=== PATIENT | female | born 1975 | race Caucasian/White ===

== ENCOUNTER 2021-01-04 13:35 | Emergency (ER) | payer OTHER, SELFPAY ==
[2021-01-04 13:40] VITALS: BP 169/88; PULSE 77; RESP 18; TEMP 37.1; O2SAT 100; BMI 22.6
[2021-01-04 17:23] LABS: MANUAL DIFF FLAG NO
[2021-01-04 17:27] LABS: Basophils Percent Auto 0.6 % (0-2); Eosinophils Absolute Auto 0.4 X10*3/uL (0.0-0.4); Eosinophils Percent Auto 5.9 % (0-4); Hematocrit 38.7 % (37-47); Hemoglobin 12.6 g/dl (12.0-16.0); Imm Gran Abs Auto 0.01 X10*3/uL (0.00-0.03); Imm Gran Pct Auto 0.1 % (0.0-0.4); Lymphocytes Percent Auto 27.2 % (20-40); Mean Corpuscular HGB Conc 32.6 g/dl (31.0-35.0); Mean Corpuscular Hemoglobin 30.2 pg (27.0-33.0); Mean Corpuscular Volume 92.8 fL (80-98); Mean Platelet Volume 10.1 fL (9.4-12.3); Monocytes Absolute Auto 0.6 X10*3/uL (0.1-1.2); Monocytes Percent Auto 8.1 % (2-11); Neutrophils Absolute Auto 4.2 X10*3/uL (2.0-8.3); Neutrophils Percent Auto 58.1 % (45-73); Platelet Count 273 X10*3/uL (160-400); Red Blood Count 4.17 X10*6/uL (4.20-5.50); Red Cell Distribution Width 11.9 % (11.0-16.0); White Blood Count 7.2 X10*3/uL (4.8-10.8)
[2021-01-04 17:31] LABS: Prothrombin Time 11.9 SEC (10.8-13.0)
[2021-01-04 17:48] LABS: Alanine Aminotransferase 7 U/L (0-31); Albumin Level 4.2 g/dL (3.5-5.0); Alkaline Phosphatase 65 U/L (39-117); Anion Gap 11 (12-20); Aspartate Amino Transferase 11 U/L (5-31); Bilirubin Total 0.6 mg/dL (0.0-1.0); Blood Urea Nitrogen 10 mg/dL (9-16); Carbon Dioxide 25 mmol/L (22-29); Chloride 106 mmol/L (96-108); Creatinine Clr Calc Pharmacy 90.2; Estimated Glomerular Filt Rate > 60; Glucose Random 97 mg/dL (60-115); Potassium 4.1 mmol/L (3.3-5.1); Sodium 138 mmol/L (135-145); Total Protein 6.7 g/dL (6.5-8.0)
[2021-01-04 18:01] VITALS: BP 174/81; PULSE 84; RESP 20; O2SAT 98
--- NOTE | 2021-01-04 19:40 | ED_ITS ---
HPI - Weakness General Chief complaint: Weakness Stated complaint: left side pain Time Seen by Provider: 01/04/21 19:40 Source: patient Mode of arrival: ambulatory Limitations: no limitations History of Present Illness HPI Narrative: Patient with left MCA stroke with right-sided weakness on tramadol and gabapentin from back pain which she ran out of it 3 - 4 days ago since then she is complaining of pain all over the back and left side patient called her PCP ask her to go to hospital Related Data Previous Rx's Medication Instructions Recorded gabapentin 300 mg PO BID #20 cap 01/04/21 tramadol 50 mg PO Q6H PRN #20 tab 01/04/21 Allergies Allergy/AdvReac Type Severity Reaction Status Date / Time acetaminophen [From VICODIN] Allergy Unknown RASH Verified 09/01/20 15:05 ibuprofen [From MOTRIN] Allergy Unknown FACIAL Verified 09/01/20 15:05 SWELLING oxycodone [Percocet] Allergy Unknown shortness Verified 09/01/20 15:05 of breath Review of Systems Review of Systems: Constitutional : No Weight loss, No Fever, No Chills ENT/Mouth : No sore throat, No Rhinorrhea Eyes: No Eye Pain, No Swelling Cardiovascular : No Chest Pain, no palpitations Respiratory : No Cough, No Sputum, no shortness of breath Gastrointestinal : no Nausea, No Vomiting, No Diarrhea, No abdominal Pain, no black stools Genitourinary : No Dysuria, No Urinary Frequency Musculoskeletal : No joint pain, No Myalgias, No Joint Swelling Skin : No Skin Lesions, No rash Neuro : No Weakness, No Numbness, No Dizziness, No Headache Psych : No Anxiety/Panic, No Depression Heme/Lymph: No Bruising, No Lymphadenopathy Endocrine : No Polyuria, No Polydipsia All other systems reviewed and are negative [facility] Past Medical History Surgical History No pertinent past surgical history Family History Family History Father History of diabetes mellitus History of depression History of hypertension History of stroke History of colon cancer Mother History of diabetes mellitus History of depression History of hypertension History of breast cancer in female Brother History of depression Social History Social History Advance Directives: No Physical Exam Vital Signs: Vital Signs: Last Vital Signs Temp 98.7 F 01/04/21 13:40 Pulse 84 01/04/21 18:01 Resp 20 01/04/21 18:01 BP 174/81 H 01/04/21 18:01 Pulse Ox 98 01/04/21 18:01 Body Mass Index 22.6 Appearance: Alert. Oriented X3. No acute distress. Emotional Eyes: PERRLA, No Nystagmus ENT: Pharynx normal. Oral Mucosa moist Neck: Normal inspection. Neck supple. CVS: Normal heart rate and rhythm. Pulses normal. Respiratory: No respiratory distress. Equal air entry bilateral, no wheezing/rales/rhonchi Abdomen: Soft and nontender. Bowel sounds are present, no mass palpable, no CVA tenderness Skin: Skin warm and dry. Normal skin color. Normal skin turgor. Extremities: No lower extremity edema. No calf tenderness, diffuse muscular tenderness of back no focal spinal tenderness Neuro: Oriented X 3. Right-sided residual weakness with contracture of the upper extremity, No sensory deficit.No cerebellar signs , cranial nerves II- XII intact MDM - Weakness MDM Narrative Medical decision making narrative: Patient with left MCA stroke with dense weakness on the right side wheelchair bound mostly on pain medication for ch ronic back pain secondary to posture comes here for the pain medicine as she ran out of her medicine. Will discharge patient home on tramadol and gabapentin advised to follow with PCP. No neuro deficit on the left side Lab Data Attestation: I reviewed the patient's lab results. Result diagrams: 01/04/21 17:16 01/04/21 17:16 Labs: Lab Results 01/04/21 01/04/21 01/04/21 Range/Units 17:16 17:16 17:16 WBC 7.2 (4.8-10.8) X10*3/uL RBC 4.17 L (4.20-5.50) X10*6/uL Hgb 12.6 (12.0-16.0) g/dl Hct 38.7 (37-47) % MCV 92.8 (80-98) fL MCH 30.2 (27.0-33.0) pg MCHC 32.6 (31.0-35.0) g/dl RDW 11.9 (11.0-16.0) % Plt Count 273 (160-400) X10*3/uL MPV 10.1 (9.4-12.3) fL Immature Gran % (Auto) 0.1 (0.0-0.4) % Neut % (Auto) 58.1 (45-73) % Lymph % (Auto) 27.2 (20-40) % [place] % (Auto) 8.1 (2-11) % Eos % (Auto) 5.9 H (0-4) % Baso % (Auto) 0.6 (0-2) % Lymph # (Auto) 2.0 (1.2-4.9) X10*3/uL [place] # (Auto) 0.6 (0.1-1.2) X10*3/uL Eos # (Auto) 0.4 (0.0-0.4) X10*3/uL Baso # (Auto) 0.0 (0.0-0.2) X10*3/uL Abs Immat Gran (auto) 0.01 (0.00-0.03) X10*3/uL Absolute Neuts (auto) 4.2 (2.0-8.3) X10*3/uL Absolute Nucleated RBC 0.000 (0.0-0.012) X10*3/uL Nucleated RBC % (auto) 0.0 (0.0-0.2) /100WBC Hold Purple Top SEE NOTE PT 11.9 (10.8-13.0) SEC INR 1.0 (0.9-1.1) APTT 34.0 (24.1-38.0) SEC Sodium (135-145) mmol/L Potassium (3.3-5.1) mmol/L Chloride (96-108) mmol/L Carbon Dioxide (22-29) mmol/L Anion Gap (12-20) BUN (9-16) mg/dL Creatinine (0.5-1.4) mg/dL Estim Creat Clear Calc Estimated GFR Random Glucose (60-115) mg/dL Calcium (8.4-10.2) mg/dL Total Bilirubin (0.0-1.0) mg/dL AST (5-31) U/L ALT (0-31) U/L Alkaline Phosphatase (39-117) U/L Total Protein (6.5-8.0) g/dL Albumin (3.5-5.0) g/dL 01/04/21 Range/Units 17:16 WBC (4.8-10.8) X10*3/uL RBC (4.20-5.50) X10*6/uL Hgb (12.0-16.0) g/dl Hct (37-47) % MCV (80-98) fL MCH (27.0-33.0) pg MCHC (31.0-35.0) g/dl RDW (11.0-16.0) % Plt Count (160-400) X10*3/uL MPV (9.4-12.3) fL Immature Gran % (Auto) (0.0-0.4) % Neut % (Auto) (45-73) % Lymph % (Auto) (20-40) % [place] % (Auto) (2-11) % Eos % (Auto) (0-4) % Baso % (Auto) (0-2) % Lymph # (Auto) (1.2-4.9) X10*3/uL [place] # (Auto) (0.1-1.2) X10*3/uL Eos # (Auto) (0.0-0.4) X10*3/uL Baso # (Auto) (0.0-0.2) X10*3/uL Abs Immat Gran (auto) (0.00-0.03) X10*3/uL Absolute Neuts (auto) (2.0-8.3) X10*3/uL Absolute Nucleated RBC (0.0-0.012) X10*3/uL Nucleated RBC % (auto) (0.0-0.2) /100WBC Hold Purple Top PT (10.8-13.0) SEC INR (0.9-1.1) APTT (24.1-38.0) SEC Sodium 138 (135-145) mmol/L Potassium 4.1 (3.3-5.1) mmol/L Chloride 106 (96-108) mmol/L Carbon Dioxide 25 (22-29) mmol/L Anion Gap 11 L (12-20) BUN 10 (9-16) mg/dL Creatinine 0.68 (0.5-1.4) mg/dL Estim Creat Clear Calc 90.2 Estimated GFR > 60 Random Glucose 97 (60-115) mg/dL Calcium 9.0 (8.4-10.2) mg/dL Total Bilirubin 0.6 (0.0-1.0) mg/dL AST 11 (5-31) U/L ALT 7 (0-31) U/L Alkaline Phosphatase 65 (39-117) U/L Total Protein 6.7 (6.5-8.0) g/dL Albumin 4.2 (3.5-5.0) g/dL Discharge Plan Discharge Clinical Impression: Musculoskeletal back pain Patient Disposition: Home, Self-Care Instructions: Musculoskeletal Pain (ED) Additional Instructions: Take medication as prescribed by your PCP and follow-up with pain clinic/PCP Prescriptions: New tramadol 50 mg tablet 50 mg PO Q6H PRN (Reason: pain) Qty: 20 RF: 0 gabapentin 300 mg capsule 300 mg PO BID Qty: 20 RF: 0
[2021-01-04] MEDS: traMADoL HCL 50 MG TABLET PO (21:03)
[2021-01-04] MEDS: Gabapentin 300 MG CAPSULE PO (21:03)
[2021-01-05 09:17] LABS: Glucose, Whole Blood 92 mg/dL (60-115)
== END 2021-01-04 21:44 | disposition home or self-care (01) ==
PROVIDERS: Emergency Provider Internal Medicine; PCP Internal Medicine
DX: R53.1 Weakness (principal); M79.10 Myalgia, unspecified site
CPT/HCPCS: 36415; 80053; 82947; 85025; 85610; 85730; 99283; 99285

== ENCOUNTER 2021-07-13 10:30 | Outpatient (REF) | payer OTHER, SELFPAY ==
[2021-07-13 14:26] LABS: Alanine Aminotransferase 9 U/L (0-31); Alkaline Phosphatase 60 U/L (39-117); Anion Gap 12 (12-20); Aspartate Amino Transferase 10 U/L (5-31); Bilirubin Total < 0.2 mg/dL (0.0-1.0); Blood Urea Nitrogen 13 mg/dL (9-16); Calcium 8.5 mg/dL (8.4-10.2); Carbon Dioxide 24 mmol/L (22-29); Chloride 108 mmol/L (96-108); Cholesterol 196 mg/dL; Estimated Glomerular Filt Rate > 60; Glucose Fasting 99 mg/dL (60-99); HDL Cholesterol 39 mg/dL; LDL Cholesterol Calculated 128 mg/dl; Potassium 4.1 mmol/L (3.3-5.1); Sodium 140 mmol/L (135-145); Total Protein 6.5 g/dL (6.5-8.0); Triglycerides 146 mg/dL
[2021-07-13 14:47] LABS: TSH reflex Free T4 1.59 uIU/mL (0.32-4.0); Vitamin D 25-OH Total 16.9 ng/mL (>30)
[2021-07-13 15:31] LABS: Folate 3.3 ng/mL (> or = 4.0); Vitamin B12 343 pg/mL (200-900)
== END 2021-07-13 10:31 | disposition home or self-care (01) ==
LOC: HO.HMGCLDS 10:30
PROVIDERS: PCP Internal Medicine; Visit Provider Internal Medicine
DX: Z00.01 Encounter for general adult medical examination with abnormal findings (principal); F41.8 Other specified anxiety disorders; F44.9 Dissociative and conversion disorder, unspecified; R53.1 Weakness
CPT/HCPCS: 36415; 80053; 80061; 82306; 82607; 82746; 84443

== ENCOUNTER 2021-08-26 15:24 | Emergency (ER) | payer OTHER, SELFPAY ==
--- NOTE | ~2021-08-26 | CT_ITS ---
EXAMINATION: CT HEAD WITHOUT CONTRAST CLINICAL INFORMATION: Headache. Hit head. Dizziness. COMPARISON: 10/14/2010 TECHNIQUE: Contiguous axial imaging was performed from the skull base to vertex without intravenous contrast. This CT examination was performed using dose optimization techniques as appropriate, variously including the following: * Automated exposure control * Adjustment of mA and/or kV according to patient size (this includes techniques or standardized protocols for targeted exams where dose is matched to indication/reason for exam; i.e. extremities or head) Use of iterative reconstruction technique DLP: 719 mGy-cm. FINDINGS: There is no evidence of acute intracranial hemorrhage or territorial infarction. No abnormal mass effect or midline shift is seen. Morejon to white matter differentiation is well preserved. No extra-axial fluid collections are identified. No hydrocephalus. No significant volume loss. There is no abnormal attenuation within the brain parenchyma. The osseous structures and soft tissues are normal. The mastoid air cells and visualized portions of the paranasal sinuses are well aerated. CT/CT head/brain wo con IMPRESSION: No acute intracranial pathology.
--- NOTE | ~2021-08-26 | XR_ITS ---
EXAMINATION: XR ELBOW, LEFT XR FOREARM, LEFT XR HAND, LEFT CLINICAL INFORMATION: Dogbite. Question foreign body. COMPARISON: None TECHNIQUE: Single view of the left elbow. 2 views of the left forearm. 3 views of the left hand. FINDINGS: Left elbow/forearm: No fracture or cortical disruption. Appropriate alignment of the elbow and wrist. No elbow joint effusion. Mild soft tissue swelling in the region of the medial elbow. No radiopaque foreign body. Left hand: No fracture or dislocation. Alignment is anatomic. Joint spaces are maintained. No radiopaque foreign body. XR/XR forearm LT 2V IMPRESSION: No radiopaque foreign body. Mild soft tissue swelling at the elbow. No osseous abnormality.
--- NOTE | ~2021-08-26 | XR_ITS ---
EXAMINATION: XR ELBOW, LEFT XR FOREARM, LEFT XR HAND, LEFT CLINICAL INFORMATION: Dogbite. Question foreign body. COMPARISON: None TECHNIQUE: Single view of the left elbow. 2 views of the left forearm. 3 views of the left hand. FINDINGS: Left elbow/forearm: No fracture or cortical disruption. Appropriate alignment of the elbow and wrist. No elbow joint effusion. Mild soft tissue swelling in the region of the medial elbow. No radiopaque foreign body. Left hand: No fracture or dislocation. Alignment is anatomic. Joint spaces are maintained. No radiopaque foreign body. XR/XR elbow LT 2V IMPRESSION: No radiopaque foreign body. Mild soft tissue swelling at the elbow. No osseous abnormality.
--- NOTE | ~2021-08-26 | XR_ITS ---
EXAMINATION: XR ELBOW, LEFT XR FOREARM, LEFT XR HAND, LEFT CLINICAL INFORMATION: Dogbite. Question foreign body. COMPARISON: None TECHNIQUE: Single view of the left elbow. 2 views of the left forearm. 3 views of the left hand. FINDINGS: Left elbow/forearm: No fracture or cortical disruption. Appropriate alignment of the elbow and wrist. No elbow joint effusion. Mild soft tissue swelling in the region of the medial elbow. No radiopaque foreign body. Left hand: No fracture or dislocation. Alignment is anatomic. Joint spaces are maintained. No radiopaque foreign body. XR/XR hand LT min 3V IMPRESSION: No radiopaque foreign body. Mild soft tissue swelling at the elbow. No osseous abnormality.
[2021-08-26 15:45] VITALS: BP 162/87; PULSE 96; RESP 18; TEMP 36.8; O2SAT 98; BMI 27.3
[2021-08-26 19:40] VITALS: BP 145/79; PULSE 63; RESP 16; O2SAT 98
[2021-08-26 20:46] VITALS: BP 153/77; PULSE 70; RESP 17; TEMP 37; O2SAT 97
[2021-08-26] MEDS: Amoxicillin/Potassium Clav 875 MG TABLET PO (20:50)
[2021-08-26] MEDS: LORazepam 1 MG TABLET PO (20:50)
[2021-08-26] MEDS: Diphth,Pertus(ACell),Tet Adult 0.5 ML SYRINGE IM (20:51)
[2021-08-26] MEDS: Rabies Vaccine (PCEC)/PF 1 ML VIAL IM (20:53)
[2021-08-26] MEDS: Rabies Immune Globulin/PF 300 UNIT/ML VIAL IM (21:01)
[2021-08-26] MEDS: Rabies Immune Globulin/PF 900 UNIT/3 ML VIAL IM (21:01)
--- NOTE | 2021-08-26 21:01 | PC.NURSE ---
jia scanned and left at bedside for provider use per pharmacy instructions. Yesi KRUGER aware.
--- NOTE | 2021-08-26 21:07 | PC.NURSE ---
Pt resting on stretcher in NAD, tearful, VSS on RA. Pt aaox4, medicated per NOV. Pt reports feeling sad that her dog has been put down, pt offered reassurance. Pt calm and cooperative with pt care at this time. Pt stretcher in lowest locked position, rails raised, call ramsay within reach.
--- NOTE | 2021-08-27 01:44 | ED_ITS ---
HPI - Animal Bite General Chief Complaint: Animal Bite Stated Complaint: dog bite left arm Time Seen by Provider: 08/26/21 19:47 Source: patient Mode of arrival: ambulatory Limitations: no limitations History of Present Illness HPI narrative: 46-year-old female presents for a dog bite to her left forearm and left hand. Patient has a Rotweiler, and a puppy. Her right Grazyna and peppy started to fight, she got in the middle of it and got bitten. The Rottweiler is not up-to-date on his rabies. One police were called, dog was seen foaming from the mouth. Patient tells me that and will control took the animal and put the Rottweiler down. Patient is on blood thinners is chronically weak on her right side right upper and right lower extremity. . complaint: animal bite Onset (ago): hour(s) (2) Animal: dog Description of animal: household pet Mechanism: bite Location - Extremities: left: elbow, forearm and hand Pain description: dull Severity scale (1-10): 3 Context: animals fighting Associated symptoms: none Related Data Patient tetanus UTD: No Previous Rx's Medication Instructions Recorded gabapentin 300 mg capsule 300 mg PO BID #20 cap 01/04/21 tramadol 50 mg tablet 50 mg PO Q6H PRN #20 tab 01/04/21 wheelchair #1 ea 01/19/21 lisinopril 5 mg tablet 5 mg PO DAILY #30 tab 07/13/21 cholecalciferol (vitamin D3) 1,250 1,250 mcg PO QWEEK 90 Days #13 cap 07/15/21 mcg (50,000 unit) capsule folic acid 1 mg tablet 1 mg PO DAILY #90 tab 07/15/21 amoxicillin 875 mg-potassium 1 tab PO BID 10 Days #20 tab 08/26/21 clavulanate 125 mg tablet (Augmentin) Allergies Allergy/AdvReac Type Severity Reaction Status Date / Time acetaminophen [From VICODIN] Allergy Unknown RASH Verified 08/26/21 15:45 ibuprofen [From MOTRIN] Allergy Unknown FACIAL Verified 08/26/21 15:45 SWELLING oxycodone [Percocet] Allergy Unknown shortness Verified 08/26/21 15:45 of breath Review of Systems Constitutional: Constitutional: Denies body ache(s), Denies chills, Denies fatigue, Denies fever(s), Denies headache(s), Denies malaise and Denies weakness Eyes: Eyes: Denies diplopia ENT: Denies vertigo, Denies dizziness, Denies otalgia, Denies headache(s), Denies mouth pain, Denies post nasal drip, Denies sinus pain, Denies sinus pressure, Denies sore throat and Denies throat swelling Cardiovascular: Cardiovascular: Denies chest pain, Denies syncope, Denies leg edema, Denies lightheadedness, Denies Loss of Consciousness, Denies palpitations and Denies dyspnea Respiratory: Respiratory: Denies chest congestion, Denies cough and Denies dyspnea Gastrointestinal: Gastrointestinal: Denies abdominal pain, Denies hematochezia, Denies constipation, Denies diarrhea and Denies vomiting Musculoskeletal: Comments: arm pain Integumentary/Breasts: Comments: Dog bite left arm Neurologic: Denies confusion, Denies vertigo, Denies dizziness, Denies syncope, Denies headache(s) and Denies weakness Psychiatric: Psychiatric: Denies anxiety, Denies confusion and Denies depression Endocrine: Endocrine: Denies fatigue and Denies palpitations Allergic/Immunologic: Allergic/Immunologic: Denies throat swelling PMFSH Past Medical History Medical History Annual visit for general adult medical examination with abnormal findings Complicated migraine Conversion disorder Depression with anxiety Essential hypertension Folate deficiency Vitamin D deficiency Weakness of right side of body Surgical History No pertinent past surgical history Family History Family History Father History of diabetes mellitus History of depression History of hypertension History of stroke History of colon cancer Substance use disorder Mother History of diabetes mellitus History of depression History of hypertension History of breast cancer in female Brother History of depression Social History Social History Housing: Apartment Alcohol intake: never Patient Tobacco Use Status: Former Tobacco user Years Smoked: 13yrs Advance Directives: No Advance Directives Information Provided: No Current occupational status: disabled Physical Exam Vital Signs: Vital Signs: Last Vital Signs Temp 98.6 F 08/26/21 20:46 Pulse 70 08/26/21 20:46 Resp 17 08/26/21 20:46 BP 153/77 H 08/26/21 20:46 Pulse Ox 97 08/26/21 20:46 BMI result Body Mass Index 27.3 Const: General: No confusion Nutritional Appearance: well nourished Orientation/consciousness: No confusion Limitations: no limitations HENMT: Head: Yes normal to inspection, Yes normocephalic and Yes atraumatic Ears: hearing grossly normal bilaterally, external ears normal, TM's normal bilaterally and EAC's normal General nose exam: Normal external nose present Face and sinus: Yes normal facial exam and Yes sinuses nontender Mouth: Normal oral and palatal mucosa present Throat: Yes posterior oropharynx normal Eyes: Conjunctivae: conjunctivae normal Pupils: Equal, round and reactive pupils present EOM: EOMs intact bilaterally Neck: Neck: Yes full ROM, Yes no lymphadenopathy and Yes supple Resp: Effort & Inspection: normal respiratory effort and able to speak in complete sentences Auscultation: clear to auscultation bilaterally, no crackles, no rales, no rhonchi and no wheezes Cardio: Rate: regular rate Rhythm: regular rhythm Heart sounds: S1 normal heart sound present and S2 normal heart sound present GI: Inspection: Yes normal to inspection Palpation (GI): Soft to palpation, nontender, no guarding and not rigid Percussion: Yes normal to percussion Auscultation: normal bowel sounds Skin: Other: Puncture wounds left elbow, left knuckles, dorsum left forearm. Neuro: General: No confusion Cranial nerves: Yes Equal, round and reactive pupils present Extrem: Left upper extremity: full ROM, normal capillary refill, shoulder/upper arm Details: axillary nerve sensory function normal and normal ROM, elbow/forearm Details: normal ROM, wrist and hand Details: normal capillary refill, neuromotor exam normal, neurosensory exam normal, vascular exam Deta ils: radial pulse present and normal capillary refill and normal ROM of fingers; No no cyanosis and no edema Psych: Appearance: grossly normal Affect: normal affect Attitude: cooperative Thought process: Normal thought process present Course Course Course Narrative: 46-year-old female presents for dog bite to left arm. Patient is distressed as she reports that her dog was put down. Patient also states that she fell and hit her head. On exam, patient is weak on her right upper extremity and right lower extremity, states this is her baseline. Patient is neurologically intact, patient has puncture wounds to left elbow, left forearm, left hand. Patient given rabies immunoglobulin, 1st of series of rabies vaccination, tetanus. CT of head is negative. Patient given 1st dose of Augmentin here. X- ray of left upper extremity is negative for any osseous abnormality or any foreign body such as dog teeth Patient counseled to take Augmentin for 10 days, to return for rabies vaccinations on days 3, 7, 14, these dates were detailed in patient's discharge paperwork. All questions answered, patient given return precautions. Discharge Plan Discharge Clinical Impression: Dog bite of arm Patient Disposition: Home, Self-Care Instructions: Animal Bite (ED), Rabies (ED) Additional Instructions: You must return to the emergency room for rabies vaccination 3 more times. Return in 3 days which is August 29 a, again return in 7 days which is September 02, again return in 14 days which is September 09. Please take the Augmentin for 10 days. Please wash the wound with soap and water, apply bacitracin, and a nonstick dressing. Keep the wound clean and dry. Please return to Emergency Room give any redness swelling or warmth. Prescriptions: New amoxicillin-pot clavulanate [Augmentin] 875-125 mg tablet 1 tab PO BID 10 Days Qty: 20 RF: 0 No Action folic acid 1 mg tablet 1 mg PO DAILY Qty: 90 RF: 1 cholecalciferol (vitamin D3) 1,250 mcg (50,000 unit) capsule 1,250 mcg PO QWEEK 90 Days Qty: 13 RF: 0 gabapentin 300 mg capsule 300 mg PO BID Qty: 20 RF: 0 tramadol 50 mg tablet 50 mg PO Q6H PRN (Reason: pain) Qty: 20 RF: 0 (DME) wheelchair See Rx Instructions .Route .MEDSUPPLY Qty: 1 RF: 0 lisinopril 5 mg tablet 5 mg PO DAILY Qty: 30 RF: 1 Interventions: ED Discharge Assessment Last Done: 08/26/21 22:50 Discharge Date/Time: 08/26/21 22:51
== END 2021-08-26 22:51 | disposition home or self-care (01) ==
PROVIDERS: Emergency Provider Emergency Medicine; PCP Internal Medicine
DX: S51.852A Open bite of left forearm, initial encounter (principal); S61.452A Open bite of left hand, initial encounter; S51.052A Open bite, left elbow, initial encounter; W54.0XXA Bitten by dog, initial encounter; Z20.3 Contact with and (suspected) exposure to rabies; Y93.9 Activity, unspecified; Y92.019 Unspecified place in single-family (private) house as the place of occurrence of the external cause; Y99.9 Unspecified external cause status
CPT/HCPCS: 70450; 73070; 73090; 73130; 90375; 90471; 90472; 90675; 90715; 96372; 99283; 99284

== ENCOUNTER 2021-08-29 14:32 | Outpatient (REF) | payer OTHER, SELFPAY | END 2021-08-29 14:33 | disposition home or self-care (01) | LOC: HO.MDS 14:32 | PROVIDERS: PCP Internal Medicine; Visit Provider Emergency Medicine | DX: Z29.14 Encounter for prophylactic rabies immune globulin (principal); S51.852D Open bite of left forearm, subsequent encounter; S61.452D Open bite of left hand, subsequent encounter; W54.0XXD Bitten by dog, subsequent encounter; W18.30XD Fall on same level, unspecified, subsequent encounter; Z20.3 Contact with and (suspected) exposure to rabies; R51.9 Headache, unspecified; R42 Dizziness and giddiness | CPT/HCPCS: 90471; 90675 ==

== ENCOUNTER 2022-01-04 14:37 | Outpatient (REF) | payer OTHER, SELFPAY ==
--- NOTE | ~2022-01-04 | MM_ITS ---
EXAMINATION: MM SCREENING DIGITAL BREAST TOMOSYNTHESIS, BILATERAL CLINICAL INFORMATION: Screening. Asymptomatic. The lifetime risk of breast cancer based on the Tyrer-Cuzick Model is 23.4%. Additional annual screening with breast MRI may be of benefit in women with a Vandana Score of 20% or greater. COMPARISON: Mammography: None. TECHNIQUE: Digital breast tomosynthesis is performed in both the craniocaudal and mediolateral oblique views along with computer-aided detection (CAD). Synthesized 2D images are generated from the tomosynthesis. FINDINGS: The breasts are heterogeneously dense, which may obscure small masses (ACR BI-RADS breast composition Category c). Within the deep superior aspect of the right breast, there is a 7 mm circumscribed density likely representing a lymph node, however, its anterior margin appears somewhat irregular and I do not see a definite fatty cleft. This lies approximately 10 cm from the nipple and ultrasound examination is recommended. Within the left breast, no abnormal dominant mass or suspicious grouping of microcalcifications is identified. MM/MM tomosynthesis screening BI IMPRESSION: Right breast probable intramammary lymph node, however, the anterior margin appears somewhat irregular and ultrasound evaluation is recommended for further evaluation. ASSESSMENT: BI-RADS 0: Incomplete - Need Additional Imaging Evaluation RECOMMENDATION: Targeted right breast ultrasound. Radiology department staff will contact the patient for additional imaging.
== END 2022-01-04 14:38 | disposition home or self-care (01) ==
LOC: HO.MAMMO 14:37
PROVIDERS: Visit Provider Internal Medicine
DX: Z12.31 Encounter for screening mammogram for malignant neoplasm of breast (principal)
CPT/HCPCS: 77063; 77067

== ENCOUNTER 2022-01-12 13:43 | Outpatient (REF) | payer OTHER, SELFPAY ==
--- NOTE | ~2022-01-12 | US_ITS ---
EXAMINATION: US DIAGNOSTIC ULTRASOUND BREAST, RIGHT CLINICAL INFORMATION: Recall from baseline mammography for 0.6 cm nodular asymmetry posterior outer right breast. Prior right stroke with difficulty moving right upper extremity. Family history breast cancer mother, grandmother. TC score 23%. COMPARISON: Baseline mammography 01/04/2022. TECHNIQUE: Ultrasound right breast is targeted to the outer breast using grayscale imaging and color Doppler without and with harmonics. FINDINGS: There is no focal suspicious finding. There is no solid mass, architectural abnormality, duct ectasia, or edema in the soft tissue planes. There are 3 tiny simple cysts in the targeted area, largest approximately 8-10 cm from nipple measuring just under 5 mm. This most likely corresponds to the finding on baseline mammography MLO view. As a precaution, short interval six-month follow-up right mammography will be requested to reassess the finding on baseline exam. Results are discussed with the patient at time of visit. US/US breast RT limited IMPRESSION: -3 tiny cysts outer right breast, largest just under 5 mm, likely corresponding to the finding on baseline mammography MLO view. -No solid mass or architectural abnormality. ASSESSMENT: BI-RADS 3: Probably Benign RECOMMENDATION: 1. Diagnostic right mammography in 6 months. 2. The lifetime risk of breast cancer based on the Tyrer-Cuzick Model is 23%. Additional annual adjunct screening with breast MRI may be of benefit in women with a risk score of 20% or greater. This patient's information was entered into a reminder system with a target due date for their next mammogram.
== END 2022-01-12 13:44 | disposition home or self-care (01) ==
LOC: HO.MAMMO 13:43
PROVIDERS: PCP Internal Medicine; Visit Provider Internal Medicine
DX: R92.2 Inconclusive mammogram (principal)
CPT/HCPCS: 76642

== ENCOUNTER 2022-07-18 12:17 | Outpatient (REF) | payer OTHER, SELFPAY ==
--- NOTE | ~2022-07-18 | MM_ITS ---
EXAMINATION: MM DIAGNOSTIC DIGITAL BREAST TOMOSYNTHESIS, RIGHT CLINICAL INFORMATION: Short interval six-month follow-up for benign-appearing nodule posterior central 9:00 right breast. Family history breast cancer mother, grandmother. TC score 23%. COMPARISON: Mammography: 01/04/2022 (baseline), targeted right breast ultrasound 01/12/2022. TECHNIQUE: Digital breast tomosynthesis is performed in both the craniocaudal and mediolateral oblique views along with computer-aided detection (CAD). Synthesized 2D images are generated from the tomosynthesis. Additional right MLO view is provided with steeper obliquity. FINDINGS: The breasts are heterogeneously dense, which may obscure small masses (ACR BI-RADS breast composition Category c). The nodule posterior central 9:00 position is stable, measuring under 6 0.7 cm residing approximately 10 cm from nipple. Margins are smooth. There are coarse peripheral calcifications again noted in the nodule, in retrospect similar to prior baseline tomography. This may represent a small node with granulomatous calcification or fibroadenoma with peripheral calcification. Remainder of the right breast is unremarkable. There is no interval mass or developing density. No architectural abnormality or abnormal calcifications. Results are provided to the patient at time of visit by the technologist. MM/MM tomosynthesis diagnostic RT IMPRESSION: Small stable nodule posterior central 9:00 right breast with some stable coarse peripheral calcification. ASSESSMENT: BI-RADS 3: Probably Benign RECOMMENDATION: Diagnostic mammography at time of annual bilateral exam, due in 6 months. This patient's information was entered into a reminder system with a target due date for their next mammogram.
[2022-07-18 14:28] LABS: MANUAL DIFF FLAG NO
[2022-07-18 14:38] LABS: Basophils Absolute Auto 0.1 X10*3/uL (0.0-0.2); Basophils Percent Auto 0.7 % (0-2); Eosinophils Absolute Auto 0.2 X10*3/uL (0.0-0.4); Eosinophils Percent Auto 3.3 % (0-4); Hematocrit 38.8 % (37.0-47.0); Hemoglobin 12.8 g/dl (12.0-16.0); Imm Gran Abs Auto 0.02 X10*3/uL (0.00-0.03); Imm Gran Pct Auto 0.3 % (0.0-0.4); Lymphocytes Absolute Auto 1.5 X10*3/uL (1.2-4.9); Lymphocytes Percent Auto 20.7 % (20-40); Mean Corpuscular Hemoglobin 30.2 pg (27.0-33.0); Mean Corpuscular Volume 91.5 fL (80.0-98.0); Mean Platelet Volume 11.2 fL (9.4-12.3); Monocytes Absolute Auto 0.6 X10*3/uL (0.1-1.2); Monocytes Percent Auto 7.5 % (2-11); Neutrophils Percent Auto 67.5 % (45-73); Platelet Count 288 X10*3/uL (160-400); Red Blood Count 4.24 X10*6/uL (4.20-5.50); Red Cell Distribution Width 11.8 % (11.0-16.0); White Blood Count 7.4 X10*3/uL (4.8-10.8)
[2022-07-18 14:55] LABS: Alanine Aminotransferase 11 U/L (0-31); Anion Gap 15 (12-20); Aspartate Amino Transferase 15 U/L (5-31); Blood Urea Nitrogen 11 mg/dL (9-16); Carbon Dioxide 22 mmol/L (22-29); Chloride 107 mmol/L (96-108); Cholesterol 181 mg/dL; Estimated Glomerular Filt Rate > 60; Glucose Fasting 98 mg/dL (60-99); HDL Cholesterol 35 mg/dL; LDL Cholesterol Calculated 118 mg/dl; Potassium 4.2 mmol/L (3.3-5.1); Sodium 140 mmol/L (135-145); Triglycerides 142 mg/dL
[2022-07-18 15:16] LABS: TSH reflex Free T4 1.23 uIU/mL (0.32-4.0); Vitamin D 25-OH Total 24.1 ng/mL (>30)
[2022-07-18 15:23] LABS: Folate 7.1 ng/mL (> or = 4.0)
[2022-07-18 16:22] LABS: Vitamin B12 387 pg/mL (200-900)
== END 2022-07-18 12:18 | disposition home or self-care (01) ==
LOC: HO.MAMMO 12:17
PROVIDERS: PCP Internal Medicine; Visit Provider Internal Medicine
DX: Z00.01 Encounter for general adult medical examination with abnormal findings (principal); N63.15 Unspecified lump in the right breast, overlapping quadrants; E53.8 Deficiency of other specified B group vitamins; E55.9 Vitamin D deficiency, unspecified; F32.A Depression, unspecified; F41.9 Anxiety disorder, unspecified; F44.9 Dissociative and conversion disorder, unspecified; I10 Essential (primary) hypertension; R53.1 Weakness
CPT/HCPCS: 36415; 77061; 77065; 80048; 80061; 82306; 82607; 82746; 84443; 84450; 84460; 85025

== ENCOUNTER 2023-01-17 12:53 | Outpatient (REF) | payer OTHER, SELFPAY ==
--- NOTE | ~2023-01-17 | MM_ITS ---
EXAMINATION: MM DIAGNOSTIC DIGITAL BREAST TOMOSYNTHESIS, BILATERAL CLINICAL INFORMATION: Due for yearly. Also follow-up probable benign nodule posterior 9:00 right breast initially noted at baseline screening. Family history breast cancer mother, sister. TC score 25%. COMPARISON: Mammography: 07/18/2022, 01/04/2022 (BI-RADS 0, baseline), right breast ultrasound 01/12/2022. TECHNIQUE: Digital breast tomosynthesis is performed in both the craniocaudal and mediolateral oblique views along with computer-aided detection (CAD). Synthesized 2D images are generated from the tomosynthesis. Additional right MLO view is obtained. FINDINGS: The breasts are heterogeneously dense, which may obscure small masses (ACR BI-RADS breast composition Category c). Breast tissue composition borders on average fibroglandular. Parenchymal pattern is similar to prior studies and there is no developing density or interval mass or architectural abnormality. No abnormal calcifications. No skin thickening or coarsening of the Burke's ligaments. The axilla are unremarkable. The low small right axillary tail nodule is stable. Again, there are circumferential peripheral coarse high attenuation representing either granulomatous changes or more likely tattoo pigment (numerous tattoos on trunk, breast, extremity). Results are discussed with the patient at time of visit. MM/MM tomosynthesis diagnostic BI IMPRESSION: -No mammographic evidence of malignancy. -Stable low right axillary tail node with granulomatous calcification or tattoo pigment artifact. ASSESSMENT: BI-RADS 2: Benign RECOMMENDATION: -Routine annual mammography screening. -The lifetime risk of breast cancer based on the Tyrer-Cuzick Model is 25%. Additional annual adjunct screening with breast MRI may be of benefit in women with a risk score of 20% or greater. This patient's information was entered into a reminder system with a target due date for their next mammogram.
== END 2023-01-17 12:54 | disposition home or self-care (01) ==
LOC: HO.MAMMO 12:53
PROVIDERS: Visit Provider Internal Medicine
DX: N63.15 Unspecified lump in the right breast, overlapping quadrants (principal)
CPT/HCPCS: 77062; 77066

== ENCOUNTER 2024-02-25 13:47 | Outpatient (AMB) | payer OTHER, SELFPAY ==
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
[2024-02-25 13:55] VITALS: BP 144/80; PULSE 97; O2SAT 97
== END 2024-02-25 16:13 | disposition home or self-care (01) ==
PROVIDERS: PCP Internal Medicine; Visit Provider Internal Medicine
DX: F41.9 Anxiety disorder, unspecified (principal); F32.A Depression, unspecified; R15.9 Full incontinence of feces
CPT/HCPCS: 99214

== ENCOUNTER 2024-07-28 13:22 | Outpatient (AMB) | payer OTHER, SELFPAY ==
[2024-07-28 13:37] VITALS: BP 118/82; PULSE 97; O2SAT 98; BMI 26.4
--- NOTE | 2024-07-28 13:37 | A.OFFPC_ITS ---
Vital Signs 07/28/24 13:37 Height 5 ft Weight 135 lb BMI 26.4 BP 118/82 Blood Pressure Location Lt brachial Position Sitting Pulse 97 Pulse Source Pulse Oximeter Pulse Oximetry (%) 98 Oxygen Delivery Method Room Air Intake Visit Reasons: Severely itchy rash Intake Note: Pt is here today c/o pimple like rash all over body: started sunday with a fever Allergies acetaminophen [From VICODIN] Allergy (Unknown, Verified 07/29/24 01:14) RASH ibuprofen [From MOTRIN] Allergy (Unknown, Verified 07/29/24 01:14) FACIAL SWELLING oxycodone [Percocet] Allergy (Unknown, Verified 07/29/24 01:14) shortness of breath Medication List - Last Reconciled 07/29/24 by Christine Anderson MD cephalexin 500 mg PO Q12H 10 days chlorhexidine gluconate 4% (Hibiclens) 1 appl topical Q5M commode (bedside commode) As directed [Hospital bed with 2 side rails As directed] [Rolling walker with seat As directed] [Shower chair As directed] Shower Chair As directed NS [wheelchair use as directed; ] Tobacco use date assessed: 07/28/24 Dental Screening Dental Screen Date: 02/25/24 HPI HPI Comments History of Present Illness Details 49-year-old lady presents today complain ing of pruritic lesions scatt ered all over her body from her neck, chest and lower extremities. Patient states that these all started several days ago, lesions are spreading.. Patient states that she moved to a new house, but claims that it was cleaned well. She does have a dog in the house, but she states that he is free from fleas. She has been applying alcohol to relieve the itching, which affords only temporary relief. She states that these lesions have now spread to her lower extremities. [facility] Medical History Anxiety and depression Folate deficiency Vitamin D deficiency Essential hypertension Annual visit for general adult medical examination with abnormal findings Complicated migraine Conversion disorder Weakness of right side of body Surgical History No pertinent past surgical history Family History Father History of diabetes mellitus History of depression History of hypertension History of stroke History of colon cancer Substance use disorder Mother History of diabetes mellitus History of depression History of hypertension History of breast cancer in female Brother History of depression Social History Housing: Apartment Alcohol intake: never Patient Tobacco Use Status: Former Tobacco user Years Smoked: 13yrs e-Cigarette/Vaping Use: Never Used Current occupational status: disabled Cognitive needs: No Hearing needs: No Vision needs: No Female Reproductive History Menstrual Age of Menarche: 10 Questionnaire Thrive Questionnaire Date Thrive assessed: 07/18/22 PARTHA-7 AMB Questionnaire PARTHA-7 Date PARTHA - 7 assessed: 02/25/24 Source: Developed by Drs. Angelito Dill, Lesvia Lofton, Mark Zambrano and colleagues, with an educational orin from [employer]. Review of Systems Const Denies fever(s) ENT Reports no additional complaints Card Denies chest pain, Denies rapid heart rate, Denies irregular heart rhythm, Denies lightheadedness and Denies dyspnea Resp Denies cough, Denies dyspnea and Denies wheezing Skin/Breast Reports as per HPI Aller/Immun Denies wheezing Physical exam (Primary Care) Vital Signs: Last Vital Signs Pulse 97 07/28/24 13:37 BP 118/82 07/28/24 13:37 Pulse Ox 98 07/28/24 13:37 Oxygen Delivery Method Room Air 07/28/24 13:37 BMI result Body Mass Index 26.4 Tobacco/Smoking Status: Tobacco use Status Tobacco use date assessed 07/28/24 07/28/24 13:52 Patient Tobacco Use Status Former Tobacco user 07/28/24 13:38 e-Cigarette/Vaping Use Never Used 07/28/24 13:38 Thrive Assessment: Date of Thrive Assessment Date Thrive assessed 07/18/22 07/28/24 13:38 Const General: no acute distress, alert and awake Orientation/consciousness: patient oriented x3 Limitations: wheelchair HENMT Face and sinus: Yes sinuses nontender and Yes face symmetric Mouth: Normal oral and palatal mucosa present, oropharynx normal and moist mucous membranes Neck Neck: Yes full ROM, Yes no lymphadenopathy and Yes supple Resp Auscultation: clear to auscultation bilaterally and no wheezes Cardio Other: S1-S2 present regular rate and rhythm Skin Other: Erythematous papular lesions, with areas of crusting scattered all over body from the neck, anterior chest, and both lower extremities Neuro General: patient oriented x3 Coding Level of Care Code Est Pt Level 3 (88798) Diagnoses Insect bites of multiple sites, infected T07.XXXA; L08.9; W57.XXXA Assessment & Plan Assessment & Plan (1) Insect bites of multiple sites, infected: Code(s): T07.XXXA - Unspecified multiple injuries, initial encounter; L08.9 - Local infection of the skin and subcutaneous tissue, unspecified; W57.XXXA - Bitten or stung by nonvenomous insect and other nonvenomous arthropods, initial encounter Plan: Advised patient not to scratch lesions, may apply calamine lotion to affected areas to help with the itching, prescription sent for Hibiclens soap use twice a week, and prescription also sent for cephalexin 500 mg per capsule to take 1 every 12 hours with food for 10 days. Advised to wash all bed sheets bed linens clothes in hot water and put in dryer and vacu all living space thoroughly. Medications: New cephalexin 500 mg PO Q12H 20 caps 0RF 10 days chlorhexidine gluconate 4% (Hibiclens) 1 appl topical Q5M 3,800 mL 0RF
== END 2024-07-28 14:20 | disposition home or self-care (01) ==
PROVIDERS: PCP Internal Medicine; Visit Provider Internal Medicine
DX: T07.XXXA Unspecified multiple injuries, initial encounter (principal); L08.9 Local infection of the skin and subcutaneous tissue, unspecified; W57.XXXA Bitten or stung by nonvenomous insect and other nonvenomous arthropods, initial encounter

== ENCOUNTER → 2024-07-28 13:22 | Outpatient (BNVA) | payer OTHER, SELFPAY | PROVIDERS: PCP Internal Medicine; Visit Provider Internal Medicine | DX: L08.9 Local infection of the skin and subcutaneous tissue, unspecified (principal); T07.XXXA Unspecified multiple injuries, initial encounter; W57.XXXA Bitten or stung by nonvenomous insect and other nonvenomous arthropods, initial encounter | CPT/HCPCS: 99212 ==

== ENCOUNTER 2024-09-08 12:13 | Emergency (ER) | payer OTHER, SELFPAY ==
[2024-09-08 12:56] VITALS: BP 121/74; PULSE 80; RESP 16; TEMP 36.5; O2SAT 98; BMI 26.6
--- NOTE | 2024-09-08 12:57 | ED.GENADULT ---
HPI - General Adult General Chief complaint: Abdominal Pain Stated complaint: Kidney Pain Dizzy Stomach Pain Time Seen by Provider: 09/08/24 21:08 History of Present Illness ED Provider: Janene FR[place] narrative: The patient is a 49-year-old woman who came to the emergency room. At triage she told the triage nurse and the physician assistant offset press operator that she was having trouble with high blood sugars. When I saw the patient she told me she was here for a rash. She says that she has had a rash for several weeks. She says that she was seen at her primary care doctor's office a month ago and was told that they might be bug bites. She does not believe they are bug bites. She says the lesions have persisted and she feels she has more lesions now. She has had no fever, sweats, chills. The lesions are not painful. They are not itchy. The patient says that her primary care doctor suggested that they might be some kind of insect bites and possibly even fleas. The patient is somewhat indefinite that there was a suggestion that she could have sleep bites. She says her house is very clean. She says her boyfriend does not have any similar problems. Related Data Previous Rx's ?Medication ?Instructions ?Recorded wheelchair #1 ea 07/18/22 Shower Chair #1 ea 09/20/22 cephalexin 500 mg capsule 500 mg PO Q12H 10 days #20 caps 07/28/24 chlorhexidine gluconate 4 % 1 appl topical Q5M #3,800 mL 07/28/24 topical liquid ([facility]) [facility] bed with 2 side rails #1 ea 09/05/24 Rollator walker with seat #1 ea 09/05/24 Shower chair #1 ea 09/05/24 bedside commode (commode) #1 ea 09/05/24 Allergies Allergy/AdvReac Type Severity Reaction Status Date / Time acetaminophen [From VICODIN] Allergy Unknown RASH Verified 09/08/24 12:57 ibuprofen [From MOTRIN] Allergy Unknown FACIAL Verified 09/08/24 12:57 SWELLING oxycodone [Percocet] Allergy Unknown shortness Verified 09/08/24 12:57 of breath Review of Systems Review of Systems: Yes all other systems are reviewed and are negative PMFSH Past Medical History Medical History Anxiety and depression Folate deficiency Vitamin D deficiency Essential hypertension Annual visit for general adult medical examination with abnormal findings Complicated migraine Conversion disorder Weakness of right side of body Surgical History No pertinent past surgical history Family History Family History Father History of diabetes mellitus History of depression History of hypertension History of stroke History of colon cancer Substance use disorder Mother History of diabetes mellitus History of depression History of hypertension History of breast cancer in female Brother History of depression Social History Social History Housing: Apartment Alcohol intake: never Patient Tobacco Use Status: Former Tobacco user Years Smoked: 13yrs Smoked in Last 30 Days: Yes e-Cigarette/Vaping Use: Never Used Use of substances other than those prescribed or required for medical reasons: Yes Substance Use Type: Marijuana Advance Directives: No Advance Directives Information Provided: No Do you have a plan to hurt others: No Plan Current occupational status: disabled Cognitive needs: No Hearing needs: No Vision needs: No Physical Exam ED Vital Signs: Vital Signs - 24 hr 09/08/24 21:08 09/08/24 21:49 Temperature 97.7 F Pulse Rate 75 75 Respiratory Rate 18 18 Blood Pressure 136/65 136/65 Pulse Oximetry 98 98 Oxygen Delivery Method Room Air Room Air BMI result Body Mass Index 26.6 Const Other: The patient was awake and alert and did not appear in acute distress. She had a pleasant demeanor. She did not appear ill in any way. HENMT Other: Face is symmetrical. Mucous membranes are normal. Posterior pharynx is normal. No enanthem. Eyes General: appearance normal, both eyes and all related structures Eyelids: Yes eyelids normal Conjunctivae: conjunctivae normal Sclerae: sclerae normal Pupils: Equal, round and reactive pupils present EOM: EOMs intact bilaterally Neck Neck: Yes full ROM Resp Effort & Inspection: normal respiratory effort Auscultation: clear to auscultation bilaterally Cardio Rate: regular rate Rhythm: regular rhythm Heart sounds: S1 normal heart sound present and S2 normal heart sound present GI Other: The abdomen is soft and nontender Skin Other: The patient has lesions on her skin which are flat and characterized by some degree of peripheral erythema with central clearing. This is not have the appearance of typical erythema migrans of Lyme disease. Although the lesions are somewhat oval in shape there is an irregularity that does not seem typical of erythema migraines. The patient has lesions on her chest and abdomen and back. Neuro Other: the patient is awake and alert with normal mental status. Cranial nerves are normal. Moving all extremities normally. The patient seems entirely neurologically intact. Cranial nerves: Yes Equal, round and reactive pupils present Extrem Other: No peripheral edema. Course Course Course Narrative: RME, this is a rapid medical exam performed by [place] please refer to primary provider for complete H&P- 49-year-old female presents for evaluation of multiple complaints including elevated glucose over 600, dizziness, back pain, abdominal pain. Plan for labs, urinalysis, beta hydroxybutyrate Medical Decision Making Medical Decision Making MDM Narrative: The patient's presentation was puzzling. Apparently at triage and also with her bedside nurse she had talked about having high blood sugars at home. Her labs do not bear this out and she had been told that her point of care glucose was unremarkable prior to my evaluation. When I saw her the patient did not mention anything about blood sugars and only spoke about a rash that she has had for more than a month. I was uncertain what to make of the rash. I explained to the patient that I thought she should probably see a mechanical equipment sales engineer if it has been going on for more than a month and the diagnosis is not clear. She has multiple lesions which are primarily on her trunk. I had explained to the patient I was going to give her contact information for dermatology office is. I ultimately did thought that perhaps this might be an unusual presentation of ring warm and was going to prescribe a topical antifungal agent. However before I could speak with her again and before she received any discharge instructions she had left the emergency room. Lab Data 09/08/24 14:28 09/08/24 14:28 Labs: Lab Results 09/08/24 09/08/24 09/08/24 Range/Units 14:28 14:33 21:05 WBC 8.2 (4.8-10.8) X10*3/uL RBC 4.39 (4.20-5.50) X10*6/uL Hgb 13.4 (12.0-16.0) g/dl Hct 39.9 (37.0-47.0) % MCV 90.9 (80.0-98.0) fL MCH 30.5 (27.0-33.0) pg MCHC 33.6 (31.0-35.0) g/dl RDW 12.2 (11.0-16.0) % Plt Count 290 (160-400) X10*3/uL MPV 10.4 (9.4-12.3) fL Immature Gran % (Auto) 0.4 (0.0-0.4) % Neut % (Auto) 66.2 (45-73) % Lymph % (Auto) 24.3 (20-40) % Pershing % (Auto) 6.8 (2-11) % Eos % (Auto) 1.7 (0-4) % Baso % (Auto) 0.6 (0-2) % Lymph # (Auto) 2.0 (1.2-4.9) X10*3/uL Pershing # (Auto) 0.6 (0.1-1.2) X10*3/uL Eos # (Auto) 0.1 (0.0-0.4) X10*3/uL Baso # (Auto) 0.1 (0.0-0.2) X10*3/uL Abs Immat Gran (auto) 0.03 (0.00-0.03) X10*3/uL Absolute Neuts (auto) 5.5 (2.0-8.3) x10*3/uL Absolute Nucleated RBC 0.000 (0.0-0.012) X10*3/uL Nucleated RBC % (auto) 0.0 (0.0-0.2) /100WBC VBG pH 7.37 (7.32-7.43) VBG pCO2 43 mmHg VBG pO2 46 mmHg VBG HCO3 25 (22-26) mmol/L VBG O2 Saturation 73.0 % VBG Base Excess 0.2 mmol/L Sodium 140 (135-145) mmol/L Potassium 4.2 (3.3-5.1) mmol/L Chloride 111 H (96-108) mmol/L Carbon Dioxide 24 (22-29) mmol/L Anion Gap 9 L (12-20) BUN 10 (9-16) mg/dL Creatinine 0.77 (0.5-1.4) mg/dL Estim Creat Clear Calc 72.5 Estimated GFR > 60 POC Glucose 129 H (60-115) mg/dL Random Glucose 99 (60-115) mg/dL Calcium 9.4 (8.4-10.2) mg/dL Total Bilirubin 0.5 (0.0-1.0) mg/dL AST 20 (5-31) U/L ALT 16 (0-31) U/L Alkaline Phosphatase 62 (39-117) U/L C-Reactive Protein 0.47 (< or = 0.50) mg/dL Total Protein 7.0 (6.5-8.0) g/dL Albumin 4.2 (3.5-5.0) g/dL Lipase 19 (8-78) U/L Beta-Hydroxybutyrate 0.18 (0.02-0.27) mmol/L Urine Color Yellow Urine Appearance Clear Urine pH 6.0 (5.0-9.0) Ur Specific [place] 1.025 (1.005-1.025) Urine Protein Negative (Neg-Trace) mg/dL Urine Glucose (UA) Negative (Negative) mg/dL Urine Ketones Trace (Negative) mg/dL Urine Blood Small (1+) H (Negative) Urine Nitrite Negative (Negative) Ur Leukocyte Esterase Negative (Negative) Urine RBC 11-20 H (0-2) /HPF Urine WBC 0-5 (0-5) /HPF Ur Squamous Epith Cells 3-5 (0-2) /HPF Urine Bacteria None Seen (None Seen) Hyaline Casts 0-2 (0-2) /LPF Discharge Plan Discharge Clinical Impression: Rash Patient Disposition: Home, Self-Care Instructions: Tinea Corporis (ED) Additional Instructions: It is not clear to me what is causing your rash. It is possible this could be ringworm. Your blood testing is very reassuring. I think it would be good for you to be seen by a mechanical equipment sales engineer. You has been provided the contact information for [facility] in [place] and also for [facility] in [place]. Please contact these offices tomorrow to try to set up a follow up appointment to discuss your rash further. Also follow up with your regular doctor. Return to the emergency room if worse. Prescriptions: No Action (DME) Shower Chair Misc See Rx Instructions .Route Qty: 1 0RF Rx Instructions: As directed (DME) Rollator walker with seat See Rx Instructions .Route .MEDSUPPLY Qty: 1 0RF Rx Instructions: As directed (DME) Shower chair regular See Rx Instructions .Route .MEDSUPPLY Qty: 1 0RF Rx Instructions: As directed (DME) bedside commode Kit See Rx Instructions .Route Qty: 1 0RF Rx Instructions: Use As directed (DME) Hospital bed with 2 side rails See Rx Instructions .Route .MEDSUPPLY Qty: 1 0RF Rx Instructions: As directed (DME) wheelchair See Rx Instructions .Route .MEDSUPPLY Qty: 1 0RF Rx Instructions: use as directed; chlorhexidine gluconate [Hibiclens] 4 % liquid 1 appl topical Q5M Qty: 3800 0RF cephalexin 500 mg capsule 500 mg PO Q12H 10 Days Qty: 20 0RF Referrals: [facility] [Provider Group] (rash) Christine Anderson MD [Primary Care Provider] - (rash) Franny Bolaños MD [Physician] - (rash) Interventions: ED Discharge Assessment Last Done: 09/08/24 21:49 Discharge Date/Time: 09/08/24 21:51 Print Language: Hungarian
[2024-09-08 14:34] LABS: MANUAL DIFF FLAG NO
[2024-09-08 14:36] LABS: Basophils Absolute Auto 0.1 X10*3/uL (0.0-0.2); Basophils Percent Auto 0.6 % (0-2); Eosinophils Absolute Auto 0.1 X10*3/uL (0.0-0.4); Eosinophils Percent Auto 1.7 % (0-4); Hematocrit 39.9 % (37.0-47.0); Hemoglobin 13.4 g/dl (12.0-16.0); Imm Gran Abs Auto 0.03 X10*3/uL (0.00-0.03); Imm Gran Pct Auto 0.4 % (0.0-0.4); Lymphocytes Percent Auto 24.3 % (20-40); Mean Corpuscular HGB Conc 33.6 g/dl (31.0-35.0); Mean Corpuscular Hemoglobin 30.5 pg (27.0-33.0); Mean Corpuscular Volume 90.9 fL (80.0-98.0); Mean Platelet Volume 10.4 fL (9.4-12.3); Monocytes Absolute Auto 0.6 X10*3/uL (0.1-1.2); Monocytes Percent Auto 6.8 % (2-11); Neutrophils Absolute Auto 5.5 x10*3/uL (2.0-8.3); Neutrophils Percent Auto 66.2 % (45-73); Platelet Count 290 X10*3/uL (160-400); Red Blood Count 4.39 X10*6/uL (4.20-5.50); Red Cell Distribution Width 12.2 % (11.0-16.0); White Blood Count 8.2 X10*3/uL (4.8-10.8)
[2024-09-08 14:38] LABS: VBG Base Excess 0.2 mmol/L; VBG HCO3 25 mmol/L (22-26); VBG pCO2 43 mmHg; VBG pH 7.37 (7.32-7.43); VBG pO2 46 mmHg
[2024-09-08 14:39] LABS: Venous Blood Gas Refer to POC result
[2024-09-08 14:41] LABS: Appearance Urine Clear; Color Urine Yellow; Glucose Urine UA Negative (Negative); Leukocyte Esterase Urine Negative (Negative); Nitrite Urine Negative (Negative); Specific Gravity - Urine 1.025 (1.005-1.025); UMIC TRIGGER UACC YES; Urine Blood Small (1+) (Negative); Urine Ketones Trace mg/dL (Negative); Urine Protein Negative (Neg-Trace)
[2024-09-08 14:43] LABS: Bacteria Urine None Seen (None Seen); Hyaline Casts Urine 0-2 /LPF (0-2); WBC Urine 0-5 /HPF (0-5)
[2024-09-08 14:50] LABS: Alanine Aminotransferase 16 U/L (0-31); Albumin Level 4.2 g/dL (3.5-5.0); Alkaline Phosphatase 62 U/L (39-117); Anion Gap 9 (12-20); Aspartate Amino Transferase 20 U/L (5-31); Beta-Hydroxybutyrate 0.18 mmol/L (0.02-0.27); Bilirubin Total 0.5 mg/dL (0.0-1.0); Blood Urea Nitrogen 10 mg/dL (9-16); Calcium 9.4 mg/dL (8.4-10.2); Carbon Dioxide 24 mmol/L (22-29); Chloride 111 mmol/L (96-108); Creatinine Clr Calc Pharmacy 72.5; Estimated Glomerular Filt Rate > 60; Glucose Random 99 mg/dL (60-115); Lipase 19 U/L (8-78); Potassium 4.2 mmol/L (3.3-5.1); Sodium 140 mmol/L (135-145)
[2024-09-08 21:08] VITALS: BP 136/65; PULSE 75; RESP 18; O2SAT 98
[2024-09-08 21:12] LABS: Glucose, Whole Blood 129 mg/dL (60-115)
[2024-09-08 21:42] LABS: C Reactive Protein 0.47 mg/dL (< or = 0.50)
[2024-09-08 21:49] VITALS: BP 136/65; PULSE 75; RESP 18; TEMP 36.5; O2SAT 98
== END 2024-09-08 21:51 | disposition home or self-care (01) ==
PROVIDERS: Physician Assistant; Emergency Provider Emergency Medicine; PCP Internal Medicine
DX: R21 Rash and other nonspecific skin eruption (principal); I10 Essential (primary) hypertension
CPT/HCPCS: 36415; 80053; 81001; 82010; 82803; 82947; 83690; 85025; 86140; 99283; 99284

== ENCOUNTER 2024-12-16 11:52 | Outpatient (AMB) | payer OTHER, SELFPAY ==
[2024-12-16 12:22] VITALS: BP 140/92; PULSE 84; RESP 17; TEMP 36.6; O2SAT 97; BMI 28.7
--- NOTE | 2024-12-16 12:22 | MHC.PC.OV ---
Vital Signs 12/16/24 12:22 Height 5 ft Weight 147 lb BMI 28.7 BP 140/92 H Blood Pressure Location Lt brachial Position Sitting Respiration 17 Pulse 84 Pulse Source Pulse Oximeter Temp 97.9 F Temp Source Oral Pulse Oximetry (%) 97 Oxygen Delivery Method Room Air Intake Visit Reasons: severe headaches Intake Note: Pt is here today c/o severe headaches, bodyaches and jaw pain for several months (pt states she buys gabapentin on the streets or have brother get them for her) Allergies acetaminophen [From VICODIN] Allergy (Unknown, Verified 12/16/24 12:35) RASH ibuprofen [From MOTRIN] Allergy (Unknown, Verified 12/16/24 12:35) FACIAL SWELLING oxycodone [Percocet] Allergy (Unknown, Verified 12/16/24 12:35) shortness of breath Medication List - Last Reconciled 12/16/24 by Christine Anderson MD bedside commode (commode) Use As directed NS commode As directed [Hospital bed with 2 side rails As directed NS] quetiapine mg PO [Rollator walker with seat As directed NS] [Rollator walker with seat As directed NS] Shower Chair As directed NS [Shower chair As directed NS] Shower Chair Use As directed [wheelchair use as directed; ] Tobacco use date assessed: 12/16/24 Dental Screening Dental Screen Date: 12/16/24 Did you have a dental visit in the last 12 months?: Yes Did you have a dental problem in the last 6 months where you did not have access to dental care?: No Was dental information given to patient?: Patient has dentist HPI severe headaches HPI Details 49-year-old lady with hypertension, history of bipolar disorder, and history of conversion disorder, here today complaining of severe diffuse headache radiating down posterior neck and down the left shoulder which occurs intermittently. Patient states that there is no relief with Tylenol or Excedrin migraine, states that she has been taking gabapentin off the streets , which also has not afforded any relief. No history of trauma, watching television makes the headache worse. [facility] Medical History (Updated 12/16/24 @ 13:00 by Christine Anderson MD) Bipolar disorder with current episode depressed Posterior neck pain Headache Folate deficiency Vitamin D deficiency Essential hypertension Annual visit for general adult medical examination with abnormal findings Complicated migraine Conversion disorder Weakness of right side of body Surgical History No pertinent past surgical history Family History Father History of diabetes mellitus History of depression History of hypertension History of stroke History of colon cancer Substance use disorder Mother History of diabetes mellitus History of depression History of hypertension History of breast cancer in female Brother History of depression Social History Housing: Apartment Alcohol intake: never Patient Tobacco Use Status: Former Tobacco user Years Smoked: 13yrs e-Cigarette/Vaping Use: Never Used Substance Use Type: Marijuana Current occupational status: disabled Cognitive needs: No Hearing needs: No Vision needs: No Female Reproductive History Menstrual Age of Menarche: 10 Questionnaire PHQ-9 Over the last 2 weeks, how often have you been bothered by any of the following problems? 1. Little interest or pleasure in doing things: several days 2. Feeling down, depressed, or hopeless: several days 3. Trouble falling or staying asleep, or sleeping too much: not at all 4. Feeling tired or having little energy: several days 5. Poor appetite or overeating: several days 6. Feeling bad about yourself - or that you are a failure or have let yourself or your family down: several days 7. Trouble concentrating on things, such as reading the newspaper or watching television: several days 8. Moving or speaking so slowly that other people could have noticed. Or the opposite - being so fidgety or restless that you have been moving around a lot more than usual: not at all 9. Thoughts that you would be better off or of hurting yourself in some way: not at all Total score: 6 Depression Screening Interpretation: Positive (Diagnosed with bipolar disorder with depression sees Dr. Eduardo Corbett, and sees her therapist once a week -Edie: Jack) Depression Screening Follow-up: Existing condition, In treatment and Community Mental Health Worker F/U Depression Screening Done: Yes Source: Developed by Drs. Angelito Dill, Lesvia Lofton, Mark Zambrano and colleagues, with an educational orin from [employer]. Thrive Questionnaire Date Thrive assessed: 12/16/24 I am a: Patient What is your living situation today?: I have a steady place to live Within the past 12 months, did the food you bought not last and you didn't have the money to get more?: Never true Within the past 12 months, did you worry whether your food would run out before you got money to buy more?: Never true Do you have trouble paying for medicines?: No Do you have trouble getting transportation to medical appointments?: No Do you have trouble paying your heating and electricity bill?: No Do you have trouble taking care of your child, family member or friend?: No Do you have trouble with day-to-day activities such as bathing, preparing meals, shopping, managing finances, etc.?: Yes Are you currently unemployed and looking for a job?: No Are you interested in more education?: No THRIVE Score: 0 AUDIT C Alcohol Use Questionnaire (AUDIT-C) 1. How often do you have a drink containing alcohol?: Never Total Score: 0 PARTHA-7 AMB Questionnaire PARTHA-7 Date PARTHA - 7 assessed: 12/16/24 Feeling nervous, anxious, or on edge: 1 = Several days Not being able to stop or control worryin = Several days Worrying too much about different things: 1 = Several days Trouble relaxin = Not at all Being so restless that it is hard to sit still: 0 = Not at all Becoming easily annoyed or irritable: 1 = Several days Feeling afraid as if something awful might happen: 1 = Several days Total PARTHA-7 score (0-4 normal; 5-9 mild; 10-14 moderate; 15-21 severe): 5 Source: Developed by Drs. Angelito Dill, Lesvia Lofton, Mark Zambrano and colleagues, with an educational orin from [employer]. PARTHA-7 Assessment Billing PARTHA-7 Assessment Tool: PARTHA-7 Assessment 41840 Review of Systems Const Denies fever(s) Eyes Denies loss of vision ENT Reports no additional complaints Card Denies chest pain, Denies rapid heart rate, Denies irregular heart rhythm, Denies lightheadedness and Denies dyspnea Resp Denies cough, Denies dyspnea and Denies wheezing GI Reports no additional complaints Reports no additional complaints Neuro Denies loss of vision, Denies memory loss and Denies convulsions Psych Denies memory loss Endo Reports no additional complaints Aller/Immun Denies wheezing Physical exam (Primary Care) Vital Signs: Last Vital Signs Temp 97.9 F 12/16/24 12:22 Pulse 84 12/16/24 12:22 Resp 17 12/16/24 12:22 BP 140/92 H 12/16/24 12:22 Pulse Ox 97 12/16/24 12:22 Oxygen Delivery Method Room Air 12/16/24 12:22 BMI result Body Mass Index 28.7 Tobacco/Smoking Status: Tobacco use Status Tobacco use date assessed 12/16/24 12/16/24 12:28 Patient Tobacco Use Status Former Tobacco user 12/16/24 12:28 e-Cigarette/Vaping Use Never Used 12/16/24 12:28 PHQ-9: PHQ-9 Score PHQ-9: Total score 6 12/16/24 13:02 Depression Screening Interpretation: Positive (Diagnosed with bipolar disorder with depression sees Dr. Eduardo Corbett, and sees her therapist once a week -Edie: Jack) Depression Screening Follow-up: Existing condition, In treatment and Community Mental Health Worker F/U Thrive Assessment: Date of Thrive Assessment Date Thrive assessed 12/16/24 12/16/24 13:02 Const Other: Alert, oriented x3, alternately crying and staying calm during the visit. Wheelchair borne Orientation/consciousness: patient oriented x3 HENMT Head: Yes normocephalic Ears: external ears normal, TM's normal bilaterally and EAC's normal General nose exam: Normal external nose present and No nasal discharge present Face and sinus: Yes face symmetric and No sinus tenderness Eyes General: appearance normal, both eyes and all related structures Neck Neck: Yes full ROM, Yes no lymphadenopathy and Yes supple Resp Auscultation: clear to auscultation bilaterally Cardio Other: S1-S2 present regular rate and rhythm Back/Spine/Pelvis Other: Tenderness on palpation over posterior neck, Skin General skin exam: no rashes or lesions noted Neuro General: patient oriented x3 Psych Other: Labile affect Results Reviewed Results Reviewed: Name: Shayla Garcia Age/Sex: 49/F : 1975 Unit#: [id number] Attend Dr: Edwar Watters MD Re09/08/24 Status: DEP ER Location: .ED Disch: SPEC : [id number] GRANT: 09/08/24 STATUS: COMP REQ : [id number] RECD: 09/08/24-[address]: Jesse Felipe COMP: 09/08/24 ENTERED: 09/08/[address]: Christine Anderson MD ORDERED: CBC Auto Diff Test Result Flag Reference WBC 8.2 4.8-10.8 X10*3/uL RBC 4.39 4.20-5.50 X10*6/uL HGB 13.4 12.0-16.0 g/dl HCT 39.9 37.0-47.0 % MCV 90.9 80.0-98.0 fL MCH 30.5 27.0-33.0 pg MCHC 33.6 31.0-35.0 g/dl RDW 12.2 11.0-16.0 % PLT 290 160-400 X10*3/uL MPV 10.4 9.4-12.3 fL Neut Pct Auto 66.2 45-73 % ImGran Pct Auto 0.4 0.0-0.4 % Lymp Pct Auto 24.3 20-40 % [place] Pct Auto 6.8 2-11 % Eos Pct Auto 1.7 0-4 % Baso Pct Auto 0.6 0-2 % NRBC Pct Auto 0.0 0.0-0.2 /100WBC ANC Neut Abs # 5.5 2.0-8.3 x10*3/uL ImGran Abs Auto 0.03 0.00-0.03 X10*3/uL Lymph Abs Auto 2.0 1.2-4.9 X10*3/uL [place] Abs Auto 0.6 0.1-1.2 X10*3/uL Eos Abs Auto 0.1 0.0-0.4 X10*3/uL Baso Abs Auto 0.1 0.0-0.2 X10*3/uL NRBC Abs Auto 0.000 0.0-0.012 X10*3/uL Coding Level of Care Code Est Pt Level 4 (45036) Complex EM visit Add On G2211 Diagnoses Headache R51.9 Essential hypertension I10 Posterior neck pain M54.2 Additional Codes PARTHA-7 Assessment Billing - PARTHA-7 Assessment Tool: PARTHA-7 Assessment 26113 ([id number]) Assessment & Plan Assessment & Plan (1) Headache: Code(s): R51.9 - Headache, unspecified Category: Medical Plan: CT of head ordered, neurology consult obtained (2) Essential hypertension: Code(s): I10 - Essential (primary) hypertension Category: Medical Plan: Blood pressure today slightly elevated. Likely due to emotional distress. Will start on olmesartan 5 mg taken once a day in a.m. comprehensive metabolic panel ordered as well as vitamin B12 and folic acid, vitamin-D, fasting lipid panel and CBC. (3) Posterior neck pain: Code(s): M54.2 - Cervicalgia Category: Medical Plan: X-ray cervical spine with flexion-extension ordered Orders: Orders CT head/brain wo IV con 12/16/24 R51.9 - Headache, unspecified Vitamin D 25-OH Total 12/16/24 I10 - Essential (primary) hypertension, R51.9 - Headache, unspecified Lipid Panel 12/16/24 I10 - Essential (primary) hypertension, R51.9 - Headache, unspecified TSH reflex Free T4 12/16/24 I10 - Essential (primary) hypertension, R51.9 - Headache, unspecified XR cervical spine w flex/ext 12/16/24 M54.2 - Cervicalgia Comprehensive Sophia. Panel Fast 12/16/24 I10 - Essential (primary) hypertension, R51.9 - Headache, unspecified Complete Blood Count Auto Diff 12/16/24 I10 - Essential (primary) hypertension, R51.9 - Headache, unspecified Vitamin B12 and Folate 12/16/24 I10 - Essential (primary) hypertension, R51.9 - Headache, unspecified Referrals Neurology Referral R51.9 - Headache, unspecified Medications: New olmesartan 5 mg PO DAILY 30 tabs 1RF I10 - Essential (primary) hypertension
== END 2024-12-16 12:59 | disposition home or self-care (01) ==
PROVIDERS: PCP Internal Medicine; Visit Provider Internal Medicine
DX: R51.9 Headache, unspecified (principal); I10 Essential (primary) hypertension; M54.2 Cervicalgia

== ENCOUNTER → 2024-12-16 11:52 | Outpatient (BNVA) | payer OTHER, SELFPAY | PROVIDERS: PCP Internal Medicine; Visit Provider Internal Medicine | DX: R51.9 Headache, unspecified (principal); M54.2 Cervicalgia; I10 Essential (primary) hypertension | CPT/HCPCS: 96127; 99212 ==

== ENCOUNTER 2024-12-25 10:21 | Outpatient (REF) | payer OTHER, SELFPAY ==
[2024-12-25 13:14] LABS: MANUAL DIFF FLAG NO
[2024-12-25 13:36] LABS: Basophils Absolute Auto 0.1 X10*3/uL (0.0-0.2); Basophils Percent Auto 0.6 % (0-2); Eosinophils Absolute Auto 0.3 X10*3/uL (0.0-0.4); Eosinophils Percent Auto 3.3 % (0-4); Hematocrit 37.2 % (37.0-47.0); Hemoglobin 12.5 g/dl (12.0-16.0); Imm Gran Abs Auto 0.04 X10*3/uL (0.00-0.03); Imm Gran Pct Auto 0.4 % (0.0-0.4); Lymphocytes Absolute Auto 1.5 X10*3/uL (1.2-4.9); Lymphocytes Percent Auto 15.6 % (20-40); Mean Corpuscular HGB Conc 33.6 g/dl (31.0-35.0); Mean Corpuscular Hemoglobin 30.4 pg (27.0-33.0); Mean Corpuscular Volume 90.5 fL (80.0-98.0); Mean Platelet Volume 10.6 fL (9.4-12.3); Monocytes Absolute Auto 0.8 X10*3/uL (0.1-1.2); Monocytes Percent Auto 8.4 % (2-11); Neutrophils Percent Auto 71.7 % (45-73); Platelet Count 287 X10*3/uL (160-400); Red Blood Count 4.11 X10*6/uL (4.20-5.50); White Blood Count 9.8 X10*3/uL (4.8-10.8)
[2024-12-25 13:55] LABS: Alanine Aminotransferase 9 U/L (0-31); Albumin Level 3.9 g/dL (3.5-5.0); Anion Gap 10 (12-20); Aspartate Amino Transferase 22 U/L (5-31); Bilirubin Total 0.4 mg/dL (0.0-1.0); Blood Urea Nitrogen 13 mg/dL (9-16); Calcium 8.7 mg/dL (8.4-10.2); Carbon Dioxide 25 mmol/L (22-29); Chloride 108 mmol/L (96-108); Cholesterol 211 mg/dL (<200); Estimated Glomerular Filt Rate > 60; Glucose Fasting 108 mg/dL (60-99); HDL Cholesterol 41 mg/dL (>40); LDL Cholesterol Calculated 149 mg/dL (<100); Potassium 3.9 mmol/L (3.3-5.1); Sodium 139 mmol/L (135-145); Total Protein 6.8 g/dL (6.5-8.0); Triglycerides 108 mg/dL (<150)
[2024-12-25 14:10] LABS: Folate 11.4 ng/mL (> or = 4.0); Vitamin B12 507 pg/mL (200-900)
[2024-12-25 14:11] LABS: Alkaline Phosphatase 65 U/L (39-117)
== END 2024-12-25 10:22 | disposition home or self-care (01) ==
LOC: HO.HMGCX 10:21
PROVIDERS: PCP Internal Medicine; Visit Provider Internal Medicine
DX: R10.9 Unspecified abdominal pain (principal); R51.9 Headache, unspecified; I10 Essential (primary) hypertension
CPT/HCPCS: 36415; 80053; 80061; 82306; 82607; 82746; 84443; 85025; 99212

== ENCOUNTER 2024-12-25 10:48 | Outpatient (AMB) | payer OTHER, SELFPAY ==
--- NOTE | 2024-12-25 11:07 | AM.OFFWIN_ITS ---
Intake Vital Signs 12/25/24 11:16 Weight 147 lb BP 140/90 H Blood Pressure Location Lt brachial Pulse 88 Pulse Source Pulse Oximeter Pulse Oximetry (%) 96 Oxygen Delivery Method Room Air Intake Visit Reasons: EP LT Side pain/?Kidney Infection Intake Note: Patient here for left sided kidney pain that has been present for 3 days, she has been urinating blood and small blood clots for the past 3 days. Patient Tobacco Use Status: Former Tobacco user Allergies acetaminophen [From VICODIN] Allergy (Unknown, Verified 12/25/24 11:15) RASH ibuprofen [From MOTRIN] Allergy (Unknown, Verified 12/25/24 11:15) FACIAL SWELLING oxycodone [Percocet] Allergy (Unknown, Verified 12/25/24 11:15) shortness of breath Do you need a note to return to daycare/school/sports/work: No HPI HPI Comments History of Present Illness Details History of Present Illness - The patient is a 49-year-old female wi th past med hx of bipolar disorder with depression, conversion disorder and migraines presenting with a male friend with left-sided flank pain and hematuria. - Symptoms have persisted for three days and primarily include flank pain and visible bloody urine with clots. - Notable past medical history includes a previous episode of kidney stones approximately a decade ago, though the current pain differs from that experience, she states it is worse. - The patient has been able to urinate w ithout burning or pain and reports no systemic symptoms such as fever. - Pain described as radiating from back to the left side,, she is unable to stand or walk without pain. - NOTE: marijuana smell very strong in r oom Physical Exam General: Cooperative, healthy appearing, teary, no acute distress and well developed Orientation: Patient oriented x3 Limitations: in a wheelchair today Head: Normal to inspection Ears: Hearing grossly normal bilaterally Nose: Normal External nose present Face and sinus: Normal facial exam Eyes: Appearance normal, both eyes and all related structures Neck: Normal visual inspection and Yes full ROM Respiratory: Normal respiratory effort and able to speak in complete sentences. Skin: No rashes or lesions noted Neuro: Patient oriented x3 Back: + CVAT left side, unable to perform test on right side Extremities: Normal to inspection [facility] Medical History (Updated 12/25/24 @ 11:44 by Fany Verduzco PA-C) Bipolar disorder with current episode depressed Posterior neck pain Headache Folate deficiency Vitamin D deficiency Essential hypertension Annual visit for general adult medical examination with abnormal findings Complicated migraine Conversion disorder Weakness of right side of body Surgical History No pertinent past surgical history Family History Father History of diabetes mellitus History of depression History of hypertension History of stroke History of colon cancer Substance use disorder Mother History of diabetes mellitus History of depression History of hypertension History of breast cancer in female Brother History of depression Social History Housing: Apartment Alcohol intake: never Patient Tobacco Use Status: Former Tobacco user Years Smoked: 13yrs e-Cigarette/Vaping Use: Never Used Substance Use Type: Marijuana Current occupational status: disabled Cognitive needs: No Hearing needs: No Vision needs: No Female Reproductive History Menstrual Age of Menarche: 10 Review of Systems Const All systems reviewed & are unremarkable except as noted in HPI and below Physical Exam Vital Signs: Last Vital Signs Pulse 88 12/25/24 11:16 BP 140/90 H 12/25/24 11:16 Pulse Ox 96 12/25/24 11:16 Oxygen Delivery Method Room Air 12/25/24 11:16 Assessment & Plan Assessment & Plan (1) Acute flank pain: Code(s): R10.9 - Unspecified abdominal pain Plan: VSS, pt teary although able to stop crying to answer questions, PE remarkable for + CVAT left side. When performing the CVA tenderness test, patient became verbally abusive towards this provider, swearing and yelling at me. I was unable to explain the CVA tenderness test is a test to identify kidney stones and is a typical part of the physical exam that all providers do when trying to rule in/out kidney stones. Tenderness = increased liklihood of kidney stones. The patient immediately started yelling and swearing at me, calling me names such as stupid and not listening and demanding to see her PCP immediately. Her male friend who was in the room with her was listening, calmly, and I did recommend the patient be brought to an ED for a workup. I left the room immediately after telling her friend this information as I will not tolerate verbal abuse from a patient. I asked my commissioned police officer to go in the room to ensure they left, assure her that her PCP will not be seeing her today because she does not have an appointment and she needs to have a thorough evaluation at the ED. The patient is advised to proceed to the emergency room for urgent evaluation due to the presentation of left-sided flank pain and hematuria, + CVAT left side, with a history of kidney stones, suggesting possible nephrolithiasis. The plan includes imaging to confirm kidney stone presence and determine obstruction status. Pain management and appropriate treatment for any obstructions will be arranged as necessary. Immediate intervention is emphasized to prevent potential complications such as renal impairment. Called [facility] ED with expect, spoke to Nohelia 11:40AM. Patient was informed and verbally consented to the use of an ambient scribe for clinic note documentation during this visit. Coding Level of Care Code Est Pt Level 5 (72656) Diagnoses Acute flank pain R10.9
[2024-12-25 11:16] VITALS: BP 140/90; PULSE 88; O2SAT 96
== END 2024-12-25 12:03 | disposition home or self-care (01) ==
PROVIDERS: PCP Internal Medicine; Visit Provider Physician Assistant
DX: R10.9 Unspecified abdominal pain (principal)

== ENCOUNTER → 2025-01-16 13:50 | Outpatient (BNVA) | payer OTHER, SELFPAY | PROVIDERS: PCP Internal Medicine ==

== ENCOUNTER 2025-01-16 14:17 | Outpatient (REF) | payer OTHER, SELFPAY ==
--- NOTE | ~2025-01-16 | XR_ITS ---
EXAMINATION: XR CERVICAL SPINE 4-5 VIEWS HISTORY: M54.2 - Cervicalgia COMPARISON: There are no prior studies for comparison. FINDINGS: AP, lateral, and bilateral oblique views of the cervical spine are submitted. Osseous mineralization is normal. Seven cervical vertebral bodies are identified maintaining normal height and alignment without evidence of fracture or subluxation. The intervertebral disc spaces are preserved. The neural foramina patent bilaterally. There is no prevertebral soft tissue swelling. XR/XR cervical spine 4V IMPRESSION: Unremarkable examination of the cervical spine. Electronically signed by: Angelito Dill MD 01/16/2025 02:46 PM EDT
== END 2025-01-16 14:18 | disposition home or self-care (01) ==
LOC: HO.HMGCX 14:17
PROVIDERS: PCP Internal Medicine; Visit Provider Internal Medicine
DX: M54.2 Cervicalgia (principal)
CPT/HCPCS: 72050

== ENCOUNTER → 2025-01-16 14:21 | Outpatient (BNV) | payer OTHER, SELFPAY | PROVIDERS: PCP Internal Medicine; Visit Provider Radiology Diagnostic Radiology | DX: M54.2 Cervicalgia (principal) | CPT/HCPCS: 72050 ==

== ENCOUNTER 2025-01-30 13:49 | Outpatient (REF) | payer OTHER, SELFPAY ==
--- NOTE | ~2025-01-30 | CT_ITS ---
EXAMINATION: CT HEAD WITHOUT CONTRAST CLINICAL INFORMATION: Headache COMPARISON: 08/26/2021. TECHNIQUE: Contiguous axial imaging was performed from the skull base to vertex without intravenous administration of contrast. This CT examination was performed using dose optimization techniques as appropriate, variously including the following: *Automated exposure control *Adjustment of mA and/or kV according to patient size (this includes techniques or standardized protocols for targeted exams where dose is matched to indication/reason for exam; i.e. extremities or head) *Use of iterative reconstruction technique FINDINGS: There is no evidence of intracranial hemorrhage or extra-axial fluid collection. There is no mass effect, or edema. No CT evidence of acute territorial infarct. Ventricles, sulci, and cisterns are normal in size and configuration for patient age. No hydrocephalus. No midline shift. Negative hyperdense MCA sign. Negative insular ribbon sign. No white matter abnormalities. Normal pituitary. Globes and orbital contents image normally. No extracranial soft tissue abnormalities. The paranasal sinuses, mastoid air cells, and tympanic cavities are normally aerated. No suspicious bony abnormalities. There are no acute fractures evident. CT/CT head/brain wo IV con IMPRESSION: No acute intracranial abnormality. Electronically signed by: Jeff Noel MD 01/30/2025 03:24 PM EDT RP
== END 2025-01-30 13:50 | disposition home or self-care (01) ==
LOC: HO.CT 13:49
PROVIDERS: PCP Internal Medicine; Visit Provider Internal Medicine
DX: R51.9 Headache, unspecified (principal)
CPT/HCPCS: 70450

== ENCOUNTER → 2025-01-30 13:51 | Outpatient (BNV) | payer OTHER, SELFPAY | PROVIDERS: PCP Internal Medicine; Visit Provider Radiology Diagnostic Radiology | DX: R51.9 Headache, unspecified (principal) | CPT/HCPCS: 70450 ==

== ENCOUNTER 2025-04-16 16:06 | Outpatient (AMB) | payer OTHER, SELFPAY ==
[2025-04-16 16:32] VITALS: BP 120/82; PULSE 95; RESP 16; TEMP 36.8; O2SAT 94; BMI 29.5
--- NOTE | 2025-04-16 16:32 | MHC.PC.OV ---
Vital Signs 04/16/25 16:32 Height 5 ft Weight 151 lb BMI 29.5 BP 120/82 Blood Pressure Location Lt brachial Position Sitting Respiration 16 Pulse 95 Pulse Source Pulse Oximeter Temp 98.3 F Temp Source Oral Pulse Oximetry (%) 94 Oxygen Delivery Method Room Air Intake Visit Reasons: incontinence issues-Dme supplies Allergies acetaminophen (From VICODIN) Allergy (Unknown, Verified 04/16/25 16:47) RASH ibuprofen (From MOTRIN) Allergy (Unknown, Verified 04/16/25 16:47) FACIAL SWELLING oxycodone (Percocet) Allergy (Unknown, Verified 04/16/25 16:47) shortness of breath Medication List - Last Reconciled 04/16/25 by Christine Anderson MD aripiprazole 10 mg PO DAILY bedside commode (commode) Use As directed NS blood pressure monitor As directed commode As directed gabapentin 100 - 200 mg PO BEDTIME PRN [Hospital bed with 2 side rails As directed NS] olmesartan 10 mg (2 x 5 mg) PO DAILY 3 months quetiapine mg PO [Rollator walker with seat As directed NS] [Rollator walker with seat As directed NS] Shower Chair As directed NS [Shower chair As directed NS] Shower Chair Use As directed [wheelchair use as directed; ] Tobacco use date assessed: 04/16/25 Dental Screening Dental Screen Date: 04/16/25 Did you have a dental visit in the last 12 months?: No Did you have a dental problem in the last 6 months where you did not have access to dental care?: No Was dental information given to patient?: No HPI incontinence issues-Dme supplies HPI Details - The patient is a 50-year-old female presenting with urinary incontinence. - She experiences involuntary urination during laughter, sneezing, and sleep - The patient does not feel the urge to urinate before episodes of incontinence, suggesting a lack of bladder control. - She has not used any medications for this condition and has not seen a jewelry mold maker for evaluation. -denies any urinary frequency, urgency, no abdominal pain no vaccine, no dysuria present [facility] Medical History (Updated 04/16/25 @ 16:53 by Christine Anderson MD) Mixed stress and urge urinary incontinence Cervicalgia Bipolar disorder with current episode depressed Posterior neck pain Headache Folate deficiency Vitamin D deficiency Essential hypertension Annual visit for general adult medical examination with abnormal findings Complicated migraine Conversion disorder Weakness of right side of body Surgical History No pertinent past surgical history Family History Father History of diabetes mellitus History of depression History of hypertension History of stroke History of colon cancer Substance use disorder Mother History of diabetes mellitus History of depression History of hypertension History of breast cancer in female Brother History of depression Social History Housing: Apartment Alcohol intake: never Patient Tobacco Use Status: Former Tobacco user Years Smoked: 13yrs e-Cigarette/Vaping Use: Never Used Substance Use Type: Marijuana Current occupational status: disabled Cognitive needs: No Hearing needs: No Vision needs: No Female Reproductive History Menstrual Age of Menarche: 10 Questionnaire Thrive Questionnaire Date Thrive assessed: 04/09/25 I am a: Patient What is your living situation today?: I have a place to live, but I am worried about losing it in the future Within the past 12 months, did the food you bought not last and you didn't have the money to get more?: Sometimes True Within the past 12 months, did you worry whether your food would run out before you got money to buy more?: Sometimes True Do you have trouble paying for medicines?: No Do you have trouble getting transportation to medical appointments?: No Do you have trouble paying your heating and electricity bill?: Yes Do you have trouble taking care of your child, family member or friend?: Yes Do you have trouble with day-to-day activities such as bathing, preparing meals, shopping, managing finances, etc.?: Yes Are you currently unemployed and looking for a job?: No Are you interested in more education?: No THRIVE Score: 4 AUDIT C Alcohol Use Questionnaire (AUDIT-C) 1. How often do you have a drink containing alcohol?: Never 3. How often do you have six or more drinks on one occasion?: Never Total Score: 0 PARTHA-7 AMB Questionnaire PARTHA-7 Date PARTHA - 7 assessed: 12/16/24 Feeling nervous, anxious, or on edge: 3 = Nearly every day Not being able to stop or control worryin = More than half the days Worrying too much about different things: 2 = More than half the days Trouble relaxin = Several days Being so restless that it is hard to sit still: 1 = Several days Becoming easily annoyed or irritable: 1 = Several days Feeling afraid as if something awful might happen: 1 = Several days Total PARTHA-7 score (0-4 normal; 5-9 mild; 10-14 moderate; 15-21 severe): 11 Source: Developed by Drs. Angelito Dill, Lesvia Lofton, Mark Zambrano and colleagues, with an educational orin from [employer]. Review of Systems Const All systems reviewed & are unremarkable except as noted in HPI and below Physical exam (Primary Care) Vital Signs: Last Vital Signs Temp 98.3 F 04/16/25 16:32 Pulse 95 04/16/25 16:32 Resp 16 04/16/25 16:32 BP 120/82 04/16/25 16:32 Pulse Ox 94 04/16/25 16:32 Oxygen Delivery Method Room Air 04/16/25 16:32 BMI result Body Mass Index 29.5 Tobacco/Smoking Status: Tobacco use Status Tobacco use date assessed 04/16/25 04/16/25 16:35 Patient Tobacco Use Status Former Tobacco user 04/16/25 16:35 e-Cigarette/Vaping Use Never Used 04/16/25 16:35 Thrive Assessment: Date of Thrive Assessment Date Thrive assessed 04/09/25 04/16/25 16:35 Const Other: Alert, oriented x3, alternately crying and staying calm during the visit. Wheelchair borne Orientation/consciousness: patient oriented x3 Neck Neck: Yes full ROM, Yes no lymphadenopathy and Yes supple Resp Auscultation: clear to auscultation bilaterally Cardio Other: S1-S2 present regular rate and rhythm GI Inspection: Yes normal to inspection Palpation (GI): Soft to palpation, nontender, no guarding and no masses Auscultation: normal bowel sounds General: Yes no CVA tenderness Back/Spine/Pelvis Back: no CVA tenderness Skin General skin exam: no rashes or lesions noted Neuro General: patient oriented x3 Psych Other: Labile affect Coding Level of Care Code Est Pt Level 4 (92777) Diagnoses Mixed stress and urge urinary incontinence N39.46 Assessment & Plan Assessment & Plan (1) Mixed stress and urge urinary incontinence: Code(s): N39.46 - Mixed incontinence Category: Medical Plan: The patient will be referred to a urologist to assess the cause of her urinary incontinence, with a focus on identifying any anatomical issues such as a prolapsed bladder. She is instructed to use the bathroom every two hours to help manage her symptoms and prevent episodes of incontinence. Should the urologist find no structural abnormalities, medication may be prescribed to strengthen bladder control. Patient was informed and verbally consented to the use of an ambient scribe for clinic note documentation during this visit. Orders: Referrals Urology Referral N39.46 - Mixed incontinence
== END 2025-04-16 16:53 | disposition home or self-care (01) ==
LOC: HO.HMCC 16:07
PROVIDERS: PCP Internal Medicine; Visit Provider Internal Medicine
DX: N39.46 Mixed incontinence (principal)

== ENCOUNTER → 2025-04-16 16:06 | Outpatient (BNVA) | payer OTHER, SELFPAY | PROVIDERS: PCP Internal Medicine; Visit Provider Internal Medicine | DX: N39.46 Mixed incontinence (principal) | CPT/HCPCS: 99212 ==

== ENCOUNTER 2025-07-07 13:23 | Outpatient (AMB) | payer OTHER, SELFPAY ==
--- NOTE | 2025-07-07 13:32 | A.OFFPC_ITS ---
Vital Signs 07/07/25 13:33 Height 5 ft Weight 159 lb BMI 31.0 BP 104/74 Blood Pressure Location Lt brachial Position Sitting Respiration 16 Pulse 100 Pulse Source Pulse Oximeter Temp 98.2 F Temp Source Oral Pulse Oximetry (%) 96 Oxygen Delivery Method Room Air Intake Visit Reasons: umbilical hernia pain/left foot pain/disc Intake Note: Pt is here today c/o umbilical hernia/Lt foot pain due to grt toe infalmmed Allergies acetaminophen (From VICODIN) Allergy (Unknown, Verified 07/07/25 13:51) RASH ibuprofen (From MOTRIN) Allergy (Unknown, Verified 07/07/25 13:51) FACIAL SWELLING oxycodone (Percocet) Allergy (Unknown, Verified 07/07/25 13:51) shortness of breath Medication List - Last Reconciled 07/07/25 by Christine Anderson MD aripiprazole 10 mg PO DAILY bedside commode (commode) Use As directed NS blood pressure monitor As directed commode As directed gabapentin 100 - 200 mg PO BEDTIME PRN [Hospital bed with 2 side rails As directed NS] olmesartan 10 mg (2 x 5 mg) PO DAILY 3 months quetiapine mg PO [Rollator walker with seat As directed NS] [Rollator walker with seat Use As directed NS] Shower Chair As directed NS [Shower chair As directed NS] Shower Chair Use As directed [Suction cup grab bar Use As directed NS] [wheelchair use as directed; ] Tobacco use date assessed: 07/07/25 Dental Screening Dental Screen Date: 05/13/25 Did you have a dental visit in the last 12 months?: No Did you have a dental problem in the last 6 months where you did not have access to dental care?: No Was dental information given to patient?: Patient has dentist HPI umbilical hernia pain/left foot pain/disc HPI Details 50-year-old lady here today complaining of an umbilical hernia which has been present now for the last several years, now bigger in size patient states that it gets bigger when she strains, and starts hurting. He is also complaining of painful bony mass on top of left foot and painful bunion on left great toe. Has been wearing wide shoes and massaging it with [id number] arthritis cream and takes Tylenol which affords only temporary relief . Requesting referral to see a supervisor [place] [place]. [facility] Medical History (Updated 07/07/25 @ 14:08 by Christine Anderson MD) Bunion of great toe of left foot Exostosis of bone of foot Umbilical hernia Mixed stress and urge urinary incontinence Cervicalgia Bipolar disorder with current episode depressed Posterior neck pain Headache Folate deficiency Vitamin D deficiency Essential hypertension Annual visit for general adult medical examination with abnormal findings Complicated migraine Conversion disorder Weakness of right side of body Surgical History No pertinent past surgical history Family History Father History of diabetes mellitus History of depression History of hypertension History of stroke History of colon cancer Substance use disorder Mother History of diabetes mellitus History of depression History of hypertension History of breast cancer in female Brother History of depression Social History Housing: Apartment Alcohol intake: never Patient Tobacco Use Status: Former Tobacco user Years Smoked: 13yrs e-Cigarette/Vaping Use: Never Used Substance Use Type: Marijuana Current occupational status: disabled Cognitive needs: No Hearing needs: No Vision needs: No Female Reproductive History Menstrual Age of Menarche: 10 Questionnaire PHQ-9 Over the last 2 weeks, how often have you been bothered by any of the following problems? 1. Little interest or pleasure in doing things: several days 2. Feeling down, depressed, or hopeless: several days 3. Trouble falling or staying asleep, or sleeping too much: not at all 4. Feeling tired or having little energy: several days 5. Poor appetite or overeating: several days 6. Feeling bad about yourself - or that you are a failure or have let yourself or your family down: several days 7. Trouble concentrating on things, such as reading the newspaper or watching television: several days 8. Moving or speaking so slowly that other people could have noticed. Or the opposite - being so fidgety or restless that you have been moving around a lot more than usual: not at all 9. Thoughts that you would be better off or of hurting yourself in some way: not at all Total score: 6 Depression Screening Interpretation: Positive (Diagnosed with bipolar disorder with depression sees Dr. Eduardo Corbett, and sees her therapist once a week - Edie: Jack) Depression Screening Follow-up: Existing condition, In treatment and Community Mental Health Worker F/U Depression Screening Done: Yes Source: Developed by Drs. Angelito Dill, Lesvia Lofton, Mark Zambrano and colleagues, with an educational orin from [employer]. Thrive Questionnaire Date Thrive assessed: 04/09/25 I am a: Patient What is your living situation today?: I have a place to live, but I am worried about losing it in the future Within the past 12 months, did the food you bought not last and you didn't have the money to get more?: Sometimes True Within the past 12 months, did you worry whether your food would run out before you got money to buy more?: Sometimes True Do you have trouble paying for medicines?: No Do you have trouble getting transportation to medical appointments?: No Do you have trouble paying your heating and electricity bill?: Yes Do you have trouble taking care of your child, family member or friend?: Yes Do you have trouble with day-to-day activities such as bathing, preparing meals, shopping, managing finances, etc.?: Yes Are you currently unemployed and looking for a job?: No Are you interested in more education?: No THRIVE Score: 4 AUDIT C Alcohol Use Questionnaire (AUDIT-C) 1. How often do you have a drink containing alcohol?: Never 3. How often do you have six or more drinks on one occasion?: Never Total Score: 0 PARTHA-7 AMB Questionnaire PARTHA-7 Date PARTHA - 7 assessed: 12/16/24 Feeling nervous, anxious, or on edge: 3 = Nearly every day Not being able to stop or control worryin = More than half the days Worrying too much about different things: 2 = More than half the days Trouble relaxin = Several days Being so restless that it is hard to sit still: 1 = Several days Becoming easily annoyed or irritable: 1 = Several days Feeling afraid as if something awful might happen: 1 = Several days Total PARTHA-7 score (0-4 normal; 5-9 mild; 10-14 moderate; 15-21 severe): 11 Source: Developed by Lesvia Holt B.W. Rolly, Mark Zambrano and colleagues, with an educational orin from [employer]. Review of Systems Const All systems reviewed & are unremarkable except as noted in HPI and below Physical exam (Primary Care) Vital Signs: Last Vital Signs Temp 98.2 F 07/07/25 13:33 Pulse 100 07/07/25 13:33 Resp 16 07/07/25 13:33 BP 104/74 07/07/25 13:33 Pulse Ox 96 07/07/25 13:33 Oxygen Delivery Method Room Air 07/07/25 13:33 BMI result Body Mass Index 31.0 Tobacco/Smoking Status: Tobacco use Status Tobacco use date assessed 07/07/25 07/07/25 13:40 Patient Tobacco Use Status Former Tobacco user 07/07/25 13:40 e-Cigarette/Vaping Use Never Used 07/07/25 13:40 PHQ-9: PHQ-9 Score PHQ-9: Total score 6 07/07/25 13:53 Depression Screening Interpretation: Positive (Diagnosed with bipolar disorder with depression sees Dr. Eduardo Corbett, and sees her therapist once a week - Edie: Jack) Depression Screening Follow-up: Existing condition, In treatment and Community Mental Health Worker F/U Thrive Assessment: Date of Thrive Assessment Date Thrive assessed 04/09/25 07/07/25 13:40 Const Other: Alert oriented x3, no acute distress, uses wheelchair Nutritional Appearance: obese GI Inspection: Yes visible herniation (Umbilical area) Palpation (GI): Soft to palpation, nontender, no guarding and Hernia present (Reducible) umbilical Auscultation: normal bowel sounds Extrem Other: Bony exostosis noted on dorsal aspect of left foot, and over left 1st metatarsal area, slightly tender to palpation Office Procedures Flu Questionnaire Does the patient have a severe egg allergy?: No Does the patient have severe life threatening allergies?: No Does the patient have a fever or illness today?: No Has the patient ever had Guillain-Cordova Syndrome?: No Has the patient ever had any past reaction to a flu shot?: No Immunizations Fluarix [id number] (PF) 45 mcg (15 mcg x 3)/0.5 mL IM syringe Performing Provider: Christine Anderson MD Performing Location: [facility] Administered by: Maria D Olivas CMA on 07/07/25 13:46 Dose Route Admin Location Dispensed Lot Number Expiration Date ND Rotary Kiln Operator 0.5 mL IM Left Deltoid 0.5 mL [id number] 03/09/26 [id number] [employer]note VIS Given Date VIS Provided VIS Publication Date 07/07/25 Single Vaccine 24 Eligibility Eligibility Date Funding Source Not [facility] Eligible 07/07/25 Private Coding Level of Care Code Est Pt Level 4 (35077) Diagnoses Umbilical hernia without obstruction and without gangrene K42.9 Obstruction and gangrene presence: without obstruction or gangrene Bunion of great toe of left foot M21.612 Exostosis of bone of foot M89.8X7 Flu vaccine need Z23 Assessment & Plan Assessment & Plan (1) Umbilical hernia: Code(s): K42.9 - Umbilical hernia without obstruction or gangrene Category: Medical Qualifiers: Obstruction and gangrene presence: without obstruction or gangrene Q ualified Code(s): K42.9 - Umbilical hernia without obstruction or gangrene Plan: Referred to [facility] general surgery for further evaluation management (2) Bunion of great toe of left foot: Code(s): M21.612 - Bunion of left foot Category: Medical Plan: Referral to [facility] podiatry ordered (3) Exostosis of bone of foot: Code(s): M89.8X7 - Other specified disorders of bone, ankle and foot Category: Medical Plan: Referral to [facility] podiatry ordered (4) Flu vaccine need: Code(s): Z23 - Encounter for immunization Plan: Flu vaccine given today Orders: Orders Influenza [id number] Immunization Today Z23 - Encounter for immunization Referrals Podiatry Referral M21.612 - Bunion of left foot, M89.8X7 - Other specified disorders of bone, ankle and foot General Surgery Referral K42.9 - Umbilical hernia without obstruction or gangrene
[2025-07-07 13:33] VITALS: BP 104/74; PULSE 100; RESP 16; TEMP 36.8; O2SAT 96; BMI 31.0
== END 2025-07-07 14:08 | disposition home or self-care (01) ==
LOC: HO.HMCC 13:24
PROVIDERS: PCP Internal Medicine; Visit Provider Internal Medicine
DX: K42.9 Umbilical hernia without obstruction or gangrene (principal); M21.612 Bunion of left foot; M89.8X7 Other specified disorders of bone, ankle and foot; Z23 Encounter for immunization

== ENCOUNTER → 2025-07-07 13:23 | Outpatient (BNVA) | payer OTHER, SELFPAY | PROVIDERS: PCP Internal Medicine; Visit Provider Internal Medicine | DX: K42.9 Umbilical hernia without obstruction or gangrene (principal); M21.612 Bunion of left foot; M89.8X7 Other specified disorders of bone, ankle and foot; Z23 Encounter for immunization | CPT/HCPCS: 90471; 90656; 99212 ==

== ENCOUNTER 2025-07-09 13:37 | Outpatient (AMB) | payer OTHER, SELFPAY ==
--- NOTE | 2025-07-09 14:10 | MHC.OFFVIS ---
Vital Signs 07/09/25 14:16 Height 5 ft Weight 159 lb BMI 31.0 BP 98/62 Blood Pressure Location Lt brachial Position Sitting Intake Visit Reasons: New patient Annual Intake Note: here for program management specialist annual. urinary incontinence, Menopause symptoms Wool Grower Required: No Information Interpreted: non-clinical & clinical Accompanied by: Self / Same As Patient Allergies acetaminophen (From VICODIN) Allergy (Unknown, Verified 07/09/25 14:12) RASH ibuprofen (From MOTRIN) Allergy (Unknown, Verified 07/09/25 14:12) FACIAL SWELLING oxycodone (Percocet) Allergy (Unknown, Verified 07/09/25 14:12) shortness of breath Medication List - Last Reconciled 07/09/25 by Cleopatra Mcmahan LPN aripiprazole 10 mg PO DAILY bedside commode (commode) Use As directed NS blood pressure monitor As directed commode As directed gabapentin 100 - 200 mg PO BEDTIME PRN [Hospital bed with 2 side rails As directed NS] olmesartan 10 mg (2 x 5 mg) PO DAILY 3 months quetiapine mg PO [Rollator walker with seat As directed NS] [Rollator walker with seat Use As directed NS] Shower Chair As directed NS [Shower chair As directed NS] Shower Chair Use As directed [Suction cup grab bar Use As directed NS] [wheelchair use as directed; ] Is last menstrual period known: Yes (bled for 2 days, in may bled 9/ for 2 days) Last menstrual period: 06/11/25 Do you need a note to return to daycare/school/sports/work: No HPI HPI New patient Annual: Details: Patient is here for program management specialist annual exam she says she is up-to-date on her mammograms she has not had a program management specialist exam however in 7 years she used to live in [place] and get care there. She has 1 vaginal in her history. Lately her periods have become shorter and the last 2 only lasted 2 days she has also noticed for the last 8 months that she has got decreased sex drive and it is frustrating she tries everything including setting the mood and when it comes to it she notes loss of libido she also has vaginal dryness she has been trying different vaginal lubricants that her has brought home from the drug store but nothing really works in it makes her itchy.\ She is diabetic and has high blood pressure she says her blood sugars are not too bad sometimes as high as the 180s however. She is has some weakness on her right side for which she is being treated for years with gabapentin she says she did not think that affected her sex drive at all. [facility] Medical History Bunion of great toe of left foot Exostosis of bone of foot Umbilical hernia Mixed stress and urge urinary incontinence Cervicalgia Bipolar disorder with current episode depressed Posterior neck pain Headache Folate deficiency Vitamin D deficiency Essential hypertension Annual visit for general adult medical examination with abnormal findings Complicated migraine Conversion disorder Weakness of right side of body Surgical History No pertinent past surgical history Family History Father History of diabetes mellitus History of depression History of hypertension History of stroke History of colon cancer Substance use disorder Mother History of diabetes mellitus History of depression History of hypertension History of breast cancer in female Brother History of depression Social History Housing: Apartment Alcohol intake: never Patient Tobacco Use Status: Former Tobacco user Years Smoked: 13yrs e-Cigarette/Vaping Use: Never Used Substance Use Type: Marijuana Current occupational status: disabled Cognitive needs: No Hearing needs: No Vision needs: No Female Reproductive History Menstrual Age of Menarche: 10 Date of last menstrual period: 06/11/25 control method: permanent sterilization Total pregnancies: 1 Number of Living Children: 1 History of abnormal pap smear: No (long time ago) Date of Mammogram: 01/17/23 History of abnormal mammogram: No Physical Exam Vital Signs: Last Vital Signs BP 98/62 07/09/25 14:16 BMI result Body Mass Index 31.0 Const General: healthy appearing, comfortable, no acute distress, well developed and alert Nutritional Appearance: average body habitus Orientation/consciousness: patient oriented x3 Limitations: no limitations HEENT Head: Yes normocephalic Neck Neck: Yes normal visual inspection Chest Chest palpation & inspection: normal inspection of the chest Breast/axilla inspection: normal inspection of the breasts and normal inspection of the axillae Breast/axilla palpation: normal palpation of the breasts and normal palpation of the axillae Resp Effort & Inspection: normal respiratory effort GI Inspection: Yes normal to inspection, No Abdominal wall edema and No distended Palpation (GI): Soft to palpation and nontender Other: External exam within normal limits there is some dryness noted no abnormal discharge whatsoever mild atrophic changes noted vagina is rugated cervix pink smooth healthy appearing no abnormal discharge whatsoever uterus is anteverted mobile easily palpable and feels possibly slightly enlarged. Adnexa nontender will get ultrasound to ascertain whether not there were fibroids. General: Yes bladder normal to palpation External Female Exam: normal external appearance and normal appearance of the urethra Speculum Exam - Vagina: normal appearance of the vagina, normal palpation and normal vaginal discharge Speculum Exam - Cervix: normal appearance of the cervix, normal palpation and nontender Bimanual exam- vagina & uterus: normal bimanual exam, normal palpation, uterine size normal, bladder normal to palpation, consistency normal, normal palpation, uterine mobility normal, uterine shape normal, No Cervical tenderness present, non-tender and no cervical motion tenderness Bimanual Exam- Adnexa, other: normal adnexae, no masses, normal and No adnexal tenderness Neuro General: patient oriented x3 Assessment & Plan Assessment & Plan (1) Bulky or enlarged uterus: Comment: Maybe within normal limits will get ultrasound to verify if there were any fibroids Code(s): N85.2 - Hypertrophy of uterus Category: Medical (2) Mixed stress and urge urinary incontinence: Code(s): N39.46 - Mixed incontinence Category: Medical (3) Cervical cancer screening: Code(s): Z12.4 - Encounter for screening for malignant neoplasm of cervix Category: Medical (4) Screen for sexually transmitted diseases: Code(s): Z11.3 - Encounter for screening for infections with a predominantly sexual mode of transmission Category: Medical (5) Decreased libido: Code(s): R68.82 - Decreased libido Category: Medical (6) Perimenopause: Code(s): N95.1 - Menopausal and female climacteric states Category: Medical Plan -----Discussed in this visit the following: healthy balanced diet, regular and consistent exercise, getting recommended health screens, doing the best she can for her particular health concerns, kegel exercises, pap smear screening and followup recommendations, mammography screening and SBE, normal changes in cycles in her life stage--- . Discussed elyssa menopausal changes and the real realities of her symptoms and the challenges of finding solutions suggested non hormonal ways of managing. She is doing what she can. Suggested trying other vaginal lubricants. Given her diabetes and high blood pressure it might be challenging to consider any other therapy at this time Discussed that her uterus maybe in little bit enlarged I am not entirely certain but I am going to order a pelvic ultrasound to ascertain whether not she has any fibroids. We will have a visit after to review. Orders: Orders MM tomosynthesis screening BI Today N39.46 - Mixed incontinence, N85.2 - Hypertrophy of uterus, N95.1 - Menopausal and female climacteric states, R68.82 - Decreased libido, Z11.3 - Encounter for screening for infections with a predominantly sexual mode of transmission, Z12.31 - Encounter for screening mammogram for malignant neoplasm of breast, Z12.4 - Encounter for screening for malignant neoplasm of cervix US pelvic and transvaginal Today N85.2 - Hypertrophy of uterus Coding Level of Care Code Est Pt Prev Care 40-64y(39048) Diagnoses Bulky or enlarged uterus N85.2 Mixed stress and urge urinary incontinence N39.46 Cervical cancer screening Z12.4 Screen for sexually transmitted diseases Z11.3 Decreased libido R68.82 Perimenopause N95.1
[2025-07-09 14:16] VITALS: BP 98/62; BMI 31.0
== END 2025-07-09 15:14 | disposition home or self-care (01) ==
LOC: HO.HWSM 13:37
PROVIDERS: PCP Internal Medicine; Visit Provider Advanced Practice Midwife
DX: Z01.419 Encounter for gynecological examination (general) (routine) without abnormal findings (principal); N85.2 Hypertrophy of uterus; N39.46 Mixed incontinence; Z11.3 Encounter for screening for infections with a predominantly sexual mode of transmission; R68.82 Decreased libido; N95.1 Menopausal and female climacteric states
CPT/HCPCS: 99396; 99459

== ENCOUNTER 2025-07-09 13:37 | Outpatient (REF) | payer OTHER, SELFPAY ==
[2025-07-10 02:08] LABS: Bacterial Vaginosis PCR POSITIVE (Negative); Candida Group PCR NOT DETECTED (Not Detect); Candida glab krusei PCR NOT DETECTED (Not Detect); Trichomonas vaginalis PCR NOT DETECTED (Not Detect)
[2025-07-10 02:40] LABS: CT PCR NOT DETECTED (Not Detect.); NG PCR NOT DETECTED (Not Detect.)
== END 2025-07-09 13:38 | disposition home or self-care (01) ==
LOC: HO.LNP 13:37
PROVIDERS: PCP Internal Medicine; Visit Provider Advanced Practice Midwife
DX: Z01.419 Encounter for gynecological examination (general) (routine) without abnormal findings (principal); N85.2 Hypertrophy of uterus; N39.46 Mixed incontinence; R68.82 Decreased libido; N95.1 Menopausal and female climacteric states; Z20.2 Contact with and (suspected) exposure to infections with a predominantly sexual mode of transmission
CPT/HCPCS: 81515; 87491; 87591; 87626; 88175; 99396

== ENCOUNTER 2025-07-15 10:54 | Outpatient (AMB) | payer OTHER, SELFPAY ==
--- NOTE | 2025-07-15 11:07 | AM.OFFWIN_ITS ---
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 - The patient reports experiencing abdom inal pain that began today when she woke up, described as sharp and severe, particularly when using the toilet. - She feels a sharp pain coming out of h er vagina. - The pain is accompanied by a burning s ensation and is from the belly button radiating to the mid lower abdomen. - She also reports urinary incontinence, which has been ongoing, and an enlarged uterus was noted during a recent gynecological examination. - The patient had a pelvic exam in the o [facility] on 07/09. - She had swab done and she was told shari t she has a fungal infection, with no current treatment. - She experiences menopausal symptoms, i ncluding widespread pain and bloating. - She has no vaginal discharge or bleedi ng. - She has some low back pain as well. - She denies fever, chills, CP, SOB, hem aturia, vaginal bleeding, Physical Exam General: Cooperative, healthy appearing, uncomfortable, tearful but no acute distress and well developed Orientation: Patient oriented x3 Limitations: No limitations Respiratory: Normal respiratory effort and able to speak in complete sentences. Clear to auscultation bilaterally. No w/r/r noted. Cardiovascular: Regular rate and rhythm. Normal S1 and S2. No m/r/g noted. GI: Hypoactive BS noted. Tender to palpation in the suprapubic region. NO guarding or rebound tenderness noted. Negative Rovsing noted. Negative Lewis. Negative CVA tenderness noted. Skin: No rashes or lesions noted. Patient was informed and verbally consented to the use of an ambient scribe for clinic note documentation during this visit. [facility] Medical History Bunion of great toe of left foot Exostosis of bone of foot Umbilical hernia Mixed stress and urge urinary incontinence Cervicalgia Bipolar disorder with current episode depressed Posterior neck pain Headache Folate deficiency Vitamin D deficiency Essential hypertension Annual visit for general adult medical examination with abnormal findings Complicated migraine Conversion disorder Weakness of right side of body Surgical History No pertinent past surgical history Family History Father History of diabetes mellitus History of depression History of hypertension History of stroke History of colon cancer Substance use disorder Mother History of diabetes mellitus History of depression History of hypertension History of breast cancer in female Brother History of depression Social History Housing: Apartment Alcohol intake: never Patient Tobacco Use Status: Former Tobacco user Years Smoked: 13yrs e-Cigarette/Vaping Use: Never Used Substance Use Type: Marijuana Current occupational status: disabled Cognitive needs: No Hearing needs: No Vision needs: No Female Reproductive History Menstrual Age of Menarche: 10 Review of Systems Const All systems reviewed & are unremarkable except as noted in HPI and below Physical Exam Vital Signs: Last Vital Signs Temp 98.7 F 07/15/25 11:08 Pulse 97 07/15/25 11:08 BP 112/70 07/15/25 11:08 Pulse Ox 99 07/15/25 11:08 Oxygen Delivery Method Room Air 07/15/25 11:08 BMI result Body Mass Index 31.0 Assessment & Plan Assessment & Plan (1) Lower abdominal pain: Code(s): R10.30 - Lower abdominal pain, unspecified Plan Most likely UTI vs BV vs yeast vs stone vs enlarged uterus and possible prolapse plan - Will evaluate urine in the office to r/o UTI - will treat based on the UA results and send a culture to confirm - will repeat the vaginal swab as her previous results on 07/09 was positive for BV and she was not treated - Start her on Flagyl 500 mg BID - An ultrasound is scheduled for September 04 to further evaluate the enlarged uterus. - Immediate recommendation to visit the emergency room for further evaluation and imaging due to severe pain. - Pt is in agreeable to the plan - follow up with OBGYN - follow up with PCP Orders: Orders AMB Urinalysis Automated Today R10.30 - Lower abdominal pain, unspecified Bacterial Vaginosis Panel Today R10.30 - Lower abdominal pain, unspecified Urine Culture Today N39.0 - Urinary tract infection, site not specified, R10.30 - Lower abdominal pain, unspecified Medications: New metronidazole 500 mg PO Q12H 14 tabs 0RF Coding Level of Care Code Est Pt Level 4 (66913) Diagnoses Lower abdominal pain R10.30
[2025-07-15 11:08] VITALS: BP 112/70; PULSE 97; TEMP 37.1; O2SAT 99; BMI 31.0
== END 2025-07-15 12:05 | disposition home or self-care (01) ==
PROVIDERS: PCP Internal Medicine; Visit Provider Physician Assistant Medical
DX: R10.30 Lower abdominal pain, unspecified (principal)

== ENCOUNTER 2025-07-15 10:54 | Outpatient (REF) | payer OTHER, SELFPAY ==
[2025-07-15 14:09] LABS: Bacterial Vaginosis PCR POSITIVE (Negative); Candida Group PCR NOT DETECTED (Not Detect); Candida glab krusei PCR NOT DETECTED (Not Detect); Trichomonas vaginalis PCR NOT DETECTED (Not Detect)
== END 2025-07-15 10:55 | disposition home or self-care (01) ==
LOC: HO.LAB 10:54
PROVIDERS: PCP Internal Medicine; Visit Provider Physician Assistant Medical
DX: R10.30 Lower abdominal pain, unspecified (principal); N39.0 Urinary tract infection, site not specified
CPT/HCPCS: 81003; 81515; 87086; 99212

== ENCOUNTER 2025-07-29 09:20 | Outpatient (AMB) | payer OTHER, SELFPAY ==
[2025-07-29 09:33] VITALS: BMI 31.0
--- NOTE | 2025-07-29 09:33 | A.OFFVIS_ITS ---
Vital Signs 07/29/25 09:33 Height 5 ft Weight 159 lb BMI 31.0 Intake Visit Reasons: Left bunion, pain Intake Note: Shayla is a 50 year old female who presents today as a new patient for an evaluation of her bilateral bunions. Patient reports she has had the bunion for over 20 years. Patient has previous history of bunion removal to her left foot. She previously tried a bunion sleeve but found no relief for her symptoms. Allergies acetaminophen (From VICODIN) Allergy (Unknown, Verified 07/15/25 11:16) RASH ibuprofen (From MOTRIN) Allergy (Unknown, Verified 07/15/25 11:16) FACIAL SWELLING oxycodone (Percocet) Allergy (Unknown, Verified 07/15/25 11:16) shortness of breath HPI Comments Details: The patient is a 50-year-old female with a past medical history as seen below presenting with persistent left foot pain associated with a bunion.The foot pain has been present for approximately 20 years, with significant exacerbation over the past four years. The pain is described as constant and is exacerbated by movement and pressure. The patient has a history of a right bunionectomy at the age of 18, which has not alleviated the pain to the right foot. She reports that the pain is primarily localized around the left bunion area and is severe enough to consider surgical intervention. The patient has attempted conservative management with a bunion sleeve, change in shoe gear, inserts, and padding which was ineffective in relieving the pain. She has been trying to manage the pain conservative, but states the pain is significant and impacts her quality of life. She denies any recent pedal injuries. She denies any other pedal concerns. [facility] Medical History (Updated 07/29/25 @ 09:37 by Jossie Dennison DPM) Hallux valgus (acquired), left foot Left foot pain Bunion of great toe of left foot Exostosis of bone of foot Umbilical hernia Mixed stress and urge urinary incontinence Cervicalgia Bipolar disorder with current episode depressed Posterior neck pain Headache Folate deficiency Vitamin D deficiency Essential hypertension Annual visit for general adult medical examination with abnormal findings Complicated migraine Conversion disorder Weakness of right side of body Surgical History No pertinent past surgical history Family History Father History of diabetes mellitus History of depression History of hypertension History of stroke History of colon cancer Substance use disorder Mother History of diabetes mellitus History of depression History of hypertension History of breast cancer in female Brother History of depression Social History Housing: Apartment Alcohol intake: never Patient Tobacco Use Status: Former Tobacco user Years Smoked: 13yrs e-Cigarette/Vaping Use: Never Used Substance Use Type: Marijuana Current occupational status: disabled Cognitive needs: No Hearing needs: No Vision needs: No Female Reproductive History Menstrual Age of Menarche: 10 Review of Systems Const Details: - Musculoskeletal: Reports persistent left foot pain for 20 years, exacerbated over the past four years due to presence of a bunion. All systems reviewed & are unremarkable except as noted in HPI and below Physical Exam Vital Signs: BMI result Body Mass Index 31.0 Extrem Other: Left lower extremity focused physical exam: Derm: No open lesions abrasions or wounds noted. No clinical signs of infection noted. Skin supple and turgor within normal limits. No ecchymosis or discoloration noted. Toenails x10 within normal limits. No interdigital maceration noted. No hyperkeratotic lesions noted. Vascular: DP/PT pulses palpable. Capillary refill time less than 3 seconds. Temperature gradient warm to warm. Pedal hair absent. No varicosities noted. Mild erythema noted to the medial prominence of the 1st metatarsal head. Neuro: Protective sensation is grossly intact. MSK: Pain on palpation to the area of the bunion in the 1st metatarsal. Pain with range of motion of the 1st MPJ. Mild crepitus noted upon range of motion of 1st MPJ. Tracking HAV noted. Range of motion of the remaining forefoot, hindfoot, and ankle within normal limits. Mildly antalgic gait noted unassisted. Results Reviewed Results Reviewed: Ordered left foot weightbearing three-view x-rays to be performed prior to next visit. Assessment & Plan Assessment & Plan (1) Left foot pain: Code(s): M79.672 - Pain in left foot Category: Medical (2) Hallux valgus (acquired), left foot: Code(s): M20.12 - Hallux valgus (acquired), left foot Category: Medical Plan Patient was informed and verbally consented to the use of an ambient scribe for clinic note documentation during this visit. I discussed with the patient the need for x-rays to evaluate the bunion and determine the appropriate surgical intervention. We talked about the potential for different types of bunion surgeries, depending on the x-ray findings, and the importance of addressing severe pain through surgical means if necessary since she has failed conservative treatment. I explained the use of lidocaine patches due for pain management and emphasized the importance of wearing wider shoes and using bunion sleeves. The patient was informed about the follow-up in three weeks to discuss the x-ray results and further management options. - Ordered left foot x-rays to be performed prior to next visit. - Prescribe lidocaine patches to be applied to most painful areas of the left foot. - Advise the patient to continue using bunion sleeves and wear wider toebox shoes to minimize discomfort. - Advised patient to wear supportive shoe gear and to avoid barefoot walking. - Schedule a follow-up appointment in three weeks to review x-ray results and discuss potential surgical options. RTC in 3 weeks. Orders: Orders XR foot LT min 3V 07/29/ M20.12 - Hallux valgus (acquired), left foot, M79.672 - Pain in left foot Medications: New lidocaine 5% leave on most painful area for up to 12 hrs 1 patch topical DAILY 30 ea 0RF M20.12 - Hallux valgus (acquired), left foot, M79.672 - Pain in left foot Coding Level of Care Code New Pt Level 4 (77961) Diagnoses Left foot pain M79.672 Hallux valgus (acquired), left foot M20.12 Time Spent (min) 46
== END 2025-07-29 12:20 | disposition home or self-care (01) ==
LOC: HO.HPODS 09:21
PROVIDERS: PCP Internal Medicine; Visit Provider Student in an Organized Health Care Education/Training Program
DX: M79.672 Pain in left foot (principal); M20.12 Hallux valgus (acquired), left foot
CPT/HCPCS: 99204

== ENCOUNTER 2025-07-29 09:20 | Outpatient (REF) | payer OTHER, SELFPAY ==
--- NOTE | ~2025-07-29 | XR_ITS ---
EXAMINATION: XR FOOT, LEFT CLINICAL INFORMATION: M79.672 - Pain in left foot COMPARISON: None available. TECHNIQUE: AP, lateral, and oblique weightbearing views of the left foot. FINDINGS: Mild hallux valgus deformity of the first MTP joint. Bone alignment is otherwise normal. No acute fracture or dislocation. Soft tissue well-corticated ossifications projecting over the dorsal foot overlying the MTT joints appreciated on the lateral view only. This may be related to old trauma. Small calcaneal spur at the Achilles tendon insertion. XR/XR foot LT min 3V IMPRESSION: Mild hallux valgus deformity at the first MP PIP joint. Question old trauma to the dorsal foot over the MTT joints appreciated on the lateral view. Small calcaneal spur at the Achilles tendon insertion. Electronically signed by: Steffany Haynes MD 07/29/2025 11:09 AM DARREN
== END 2025-07-29 09:21 | disposition home or self-care (01) ==
LOC: HO.XRAY 09:20
PROVIDERS: PCP Internal Medicine; Visit Provider Student in an Organized Health Care Education/Training Program
DX: M20.12 Hallux valgus (acquired), left foot (principal); M79.672 Pain in left foot
CPT/HCPCS: 73630; 99202

== ENCOUNTER → 2025-07-29 10:08 | Outpatient (BNV) | payer OTHER, SELFPAY | PROVIDERS: PCP Internal Medicine; Visit Provider Radiology Diagnostic Radiology | DX: M20.12 Hallux valgus (acquired), left foot (principal); M77.32 Calcaneal spur, left foot | CPT/HCPCS: 73630 ==

== ENCOUNTER 2025-08-03 14:04 | Outpatient (REF) | payer OTHER, SELFPAY ==
--- NOTE | ~2025-08-03 | US_ITS ---
EXAMINATION: US PELVIS, COMPLETE CLINICAL INFORMATION: N85.2 - Hypertrophy of uterus COMPARISON: Ultrasound 03/28/2019 TECHNIQUE: Transabdominal and transvaginal imaging was performed. FINDINGS: LMP: 07/13/2025 Uterus is anteverted and anteflexed , measuring 9.8 x 5.3 x 6.9 cm. Heterogeneous foci in the uterus likely fibroids. This includes a subserosal fibroid in the posterior body measuring 2.4 x 2.1 x 2.1 cm; anterior body intramural fibroid measuring 2.1 x 1.9 x 1.6 cm; anterior body subserosal fibroid measuring 2.2 x 1.9 x 2 cm. Endometrial thickness 0.6 cm. Right ovary measures 4 x 1.9 x 2.3 cm. Volume 9.2 mL. Right ovarian dominant follicle measuring 2.3 cm. Vascular flow is demonstrated. Left ovary measures 2.5 x 1.5 x 1.7 cm. Volume 3.3 mL. Vascular flow is seen. No free fluid in the cul-de-sac. US/US pelvic and transvaginal IMPRESSION: Multiple heterogeneous uterine lesions, likely fibroids. Electronically signed by: Abhi Mora MD 08/04/2025 10:18 AM EST
== END 2025-08-03 14:05 | disposition home or self-care (01) ==
LOC: HO.US 14:04
PROVIDERS: PCP Internal Medicine; Visit Provider Advanced Practice Midwife
DX: N85.2 Hypertrophy of uterus (principal)
CPT/HCPCS: 76830; 76856

== ENCOUNTER 2025-08-04 09:44 | Outpatient (REF) | payer OTHER, SELFPAY ==
[2025-08-04 15:01] LABS: Anion Gap 10 (12-20); Blood Urea Nitrogen 11 mg/dL (9-16); Chloride 108 mmol/L (96-108); Estimated Glomerular Filt Rate > 60; Potassium 3.9 mmol/L (3.3-5.1)
[2025-08-04 19:24] LABS: Alanine Aminotransferase 18 U/L (0-31); Aspartate Amino Transferase 27 U/L (5-31); Calcium 9.2 mg/dL (8.4-10.2); Carbon Dioxide 26 mmol/L (22-29); Cholesterol 277 mg/dL (<200); HDL Cholesterol 47 mg/dL (>40); Sodium 143 mmol/L (135-145); Triglycerides 110 mg/dL (<150)
== END 2025-08-04 09:45 | disposition home or self-care (01) ==
LOC: HO.HMGCLDS 09:44
PROVIDERS: PCP Internal Medicine; Visit Provider Internal Medicine
DX: Z00.01 Encounter for general adult medical examination with abnormal findings (principal); I10 Essential (primary) hypertension; E55.9 Vitamin D deficiency, unspecified; F31.30 Bipolar disorder, current episode depressed, mild or moderate severity, unspecified; K42.9 Umbilical hernia without obstruction or gangrene; M21.612 Bunion of left foot; Z13.1 Encounter for screening for diabetes mellitus
CPT/HCPCS: 36415; 80048; 80061; 82306; 84450; 84460; 99396

== ENCOUNTER 2025-08-04 09:44 | Outpatient (AMB) | payer OTHER, SELFPAY ==
[2025-08-04 09:47] VITALS: BP 128/90; PULSE 94; RESP 16; TEMP 36.7; O2SAT 98; BMI 31.4
--- NOTE | 2025-08-04 09:47 | A.OFFPC_ITS ---
Vital Signs 08/04/25 09:47 Height 5 ft Weight 161 lb BMI 31.4 BP 128/90 H Blood Pressure Location Lt brachial Position Sitting Respiration 16 Pulse 94 Pulse Source Pulse Oximeter Temp 98.1 F Temp Source Oral Pulse Oximetry (%) 98 Oxygen Delivery Method Room Air Intake Visit Reasons: PE Intake Note: Pt is here today for her PE: last mammogram 01/17/23, papsmear 07/10/25 Hand Scudder Required: No Allergies acetaminophen (From VICODIN) Allergy (Unknown, Verified 08/04/25 10:17) RASH ibuprofen (From MOTRIN) Allergy (Unknown, Verified 08/04/25 10:17) FACIAL SWELLING oxycodone (Percocet) Allergy (Unknown, Verified 08/04/25 10:17) shortness of breath Medication List - Last Reconciled 08/04/25 by Christine Anderson MD aripiprazole 10 mg PO DAILY bedside commode (commode) Use As directed NS blood pressure monitor As directed clonazepam mg PO commode As directed gabapentin 100 - 200 mg PO BEDTIME PRN [Hospital bed with 2 side rails As directed NS] lidocaine 5% 1 patch topical DAILY olmesartan 10 mg (2 x 5 mg) PO DAILY 3 months quetiapine mg PO [Rollator walker with seat As directed NS] [Rollator walker with seat Use As directed NS] Shower Chair As directed NS [Shower chair As directed NS] Shower Chair Use As directed [Suction cup grab bar Use As directed NS] [wheelchair use as directed; ] Tobacco use date assessed: 08/04/25 Dental Screening Dental Screen Date: 08/04/25 Did you have a dental visit in the last 12 months?: Yes Did you have a dental problem in the last 6 months where you did not have access to dental care?: No Was dental information given to patient?: Patient has dentist HPI PE HPI Details 50 year-old lady with hypertension, hist ory of bipolar disorder, and history of conversion disorder currently followed by currently followed by Eduardo Corbett at [facility], has hypertension, umbilical hernia with the appointment already scheduled to see surgery next month, bunion with an appointment already to see podiatry, here today for physical exam. She goes to [facility] for her routine Pap and pelvic exam, with last cervical cancer screening done earlier this year with negative findings. Already has an appointment for her screening mammogram scheduled for September 2025. Up-to-date with her Tdap and flu vaccine . PENDING SALE TO [facility] Medical History Vitamin D deficiency Hallux valgus (acquired), left foot Bunion of great toe of left foot Umbilical hernia Mixed stress and urge urinary incontinence Bipolar disorder with current episode depressed Folate deficiency Essential hypertension Annual visit for general adult medical examination with abnormal findings Conversion disorder Weakness of right side of body Surgical History No pertinent past surgical history Family History Father History of diabetes mellitus History of depression History of hypertension History of stroke History of colon cancer Substance use disorder Mother History of diabetes mellitus History of depression History of hypertension History of breast cancer in female Brother History of depression Social History Housing: Apartment Alcohol intake: never Patient Tobacco Use Status: Former Tobacco user Years Smoked: 13yrs e-Cigarette/Vaping Use: Never Used Substance Use Type: Marijuana Current occupational status: disabled Cognitive needs: No Hearing needs: No Vision needs: No Female Reproductive History Menstrual Age of Menarche: 10 Questionnaire PHQ-9 Over the last 2 weeks, how often have you been bothered by any of the following problems? 1. Little interest or pleasure in doing things: several days 2. Feeling down, depressed, or hopeless: several days 3. Trouble falling or staying asleep, or sleeping too much: not at all 4. Feeling tired or having little energy: several days 5. Poor appetite or overeating: several days 6. Feeling bad about yourself - or that you are a failure or have let yourself or your family down: several days 7. Trouble concentrating on things, such as reading the newspaper or watching television: several days 8. Moving or speaking so slowly that other people could have noticed. Or the opposite - being so fidgety or restless that you have been moving around a lot more than usual: not at all 9. Thoughts that you would be better off or of hurting yourself in some way: not at all Total score: 6 Depression Screening Interpretation: Positive (Diagnosed with bipolar disorder with depression sees Dr. Eduardo Corbett, and sees her therapist once a week - Edie: Jack) Depression Screening Follow-up: Existing condition, In treatment and Community Mental Health Worker F/U Depression Screening Done: Yes Source: Developed by Drs. Angelito Dill, Lesvia Lofton, Mark Zambrano and colleagues, with an educational orin from [employer]. Thrive Questionnaire Date Thrive assessed: 04/09/25 I am a: Patient What is your living situation today?: I have a place to live, but I am worried about losing it in the future Within the past 12 months, did the food you bought not last and you didn't have the money to get more?: Sometimes True Within the past 12 months, did you worry whether your food would run out before you got money to buy more?: Sometimes True Do you have trouble paying for medicines?: No Do you have trouble getting transportation to medical appointments?: No Do you have trouble paying your heating and electricity bill?: Yes Do you have trouble taking care of your child, family member or friend?: Yes Do you have trouble with day-to-day activities such as bathing, preparing meals, shopping, managing finances, etc.?: Yes Are you currently unemployed and looking for a job?: No Are you interested in more education?: No THRIVE Score: 4 AUDIT C Alcohol Use Questionnaire (AUDIT-C) 1. How often do you have a drink containing alcohol?: Never 3. How often do you have six or more drinks on one occasion?: Never Total Score: 0 PARTHA-7 AMB Questionnaire PARTHA-7 Date PARTHA - 7 assessed: 12/16/24 Source: Developed by Drs. Angelito Dill, Lesvia Lofton, Mark Zambrano and colleagues, with an educational orin from [employer]. Review of Systems Const Reports no additional complaints and Reports weakness (unchanged) Eyes Denies change in vision ENT Reports no additional complaints Card Denies chest pain, Denies rapid heart rate, Denies irregular heart rhythm, Denies lightheadedness and Denies dyspnea Resp Denies cough, Denies dyspnea and Denies wheezing GI Reports no additional complaints Reports no additional complaints Musc Denies deformity, Denies joint swelling, Reports limited range of motion and Reports muscle weakness Skin/Breast Denies breast pain, Denies breast mass and Denies rash Neuro Denies convulsions and Reports weakness (unchanged) Psych Reports no additional complaints Endo Reports no additional complaints Irineo/Lymph Reports no additional complaints Aller/Immun Denies wheezing Physical exam (Primary Care) Vital Signs: Last Vital Signs Temp 98.1 F 08/04/25 09:47 Pulse 94 08/04/25 09:47 Resp 16 08/04/25 09:47 BP 128/90 H 08/04/25 09:47 Pulse Ox 98 08/04/25 09:47 Oxygen Delivery Method Room Air 08/04/25 09:47 BMI result Body Mass Index 31.4 Tobacco/Smoking Status: Tobacco use Status Tobacco use date assessed 08/04/25 08/04/25 09:55 Patient Tobacco Use Status Former Tobacco user 08/04/25 09:49 e-Cigarette/Vaping Use Never Used 08/04/25 09:49 PHQ-9: PHQ-9 Score PHQ-9: Total score 6 08/04/25 10:40 Depression Screening Interpretation: Positive (Diagnosed with bipolar disorder with depression sees Dr. Eduardo Corbett, and sees her therapist once a week - Edie: Jack) Depression Screening Follow-up: Existing condition, In treatment and Community Mental Health Worker F/U Thrive Assessment: Date of Thrive Assessment Date Thrive assessed 04/09/25 08/04/25 09:49 Const Other: Alert oriented x3, no acute distress, uses wheelchair Nutritional Appearance: obese Orientation/consciousness: patient oriented x3 HENMT Head: Yes normocephalic Ears: external ears normal, TM's normal bilaterally and EAC's normal General nose exam: Normal external nose present Face and sinus: Yes face symmetric Mouth: Normal oral and palatal mucosa present and moist mucous membranes Eyes General: appearance normal, both eyes and all related structures Eyelids: Yes eyelids normal Conjunctivae: conjunctivae normal Sclerae: sclerae normal Pupils: Equal, round and reactive pupils present EOM: EOMs intact bilaterally Neck Neck: Yes full ROM, Yes no lymphadenopathy and Yes supple Thyroid: Thyroid normal and nontender Chest Breast/axilla palpation: normal palpation of the breasts Resp Auscultation: clear to auscultation bilaterally Cardio Rate: regular rate Rhythm: regular rhythm Heart sounds: S1 normal heart sound present and S2 normal heart sound present GI Inspection: Yes visible herniation (Umbilical area) Palpation (GI): Soft to palpation, nontender, no guarding and Hernia present (Reducible) umbilical Auscultation: normal bowel sounds General: Yes no CVA tenderness and Yes deferred (sees [facility]) Back/Spine/Pelvis Back: no CVA tenderness and No back tenderness Skin General skin exam: no rashes or lesions noted Neuro General: patient oriented x3 and Unable to assess gait Cranial nerves: Yes Equal, round and reactive pupils present, Yes Normal facial strength present and Yes Midline tongue present Gait exam (Neuro): Unable to assess gait Extrem Other: Bony exostosis noted on dorsal aspect of left foot, and over left 1st metatarsal area, slightly tender to palpation Psych Appearance: grossly normal Mental Status: mental status grossly normal Speech and movement: Normal speech and movement present Affect: Labile affect present Attitude: cooperative Coding Level of Care Code Est Pt Prev Care 40-64y(31457) Diagnoses Essential hypertension I10 Annual visit for general adult medical examination with abnormal findings Z00.01 Bipolar disorder with current episode depressed F31.30 Umbilical hernia without obstruction and without gangrene K42.9 Obstruction and gangrene presence: without obstruction or gangrene Bunion of great toe of left foot M21.612 Assessment & Plan Assessment & Plan (1) Essential hypertension: Code(s): I10 - Essential (primary) hypertension Category: Medical Plan: Blood pressure at goal of less than 130/80. Continue with olmesartan mg daily. Reinforced importance of following a low sodium diet, getting regular exercise, and lowering stress levels. (2) Annual visit for general adult medical examination with abnormal findings: Code(s): Z00.01 - Encounter for general adult medical examination with abnormal findings Plan: Will check appropriate labs. Recommended dental visit every 6 months and regular eye exams, at least every 2 years. Take adequate calcium in diet and vitamin-D 3 at 2000 IU per cap once a day, in addition to weight-bearing exercises to help maintain good muscle tone and weight control. Instructed to do self-breast exam, and continue to get yearly mammogram, up-to-date with her cervical cancer screening. Reminded to get flu vaccine and updated COVID booster. Cologuard test ordered for colon cancer screening (3) Bipolar disorder with current episode depressed: Comment: [facility], and sees a therapist Edie Jones weekly Code(s): F31.30 - Bipolar disorder, current episode depressed, mild or moderate severity, unspecified Category: Medical Plan: Followed by Eduardo Corbett (4) Umbilical hernia: Code(s): K42.9 - Umbilical hernia without obstruction or gangrene Category: Medical Qualifiers: Obstruction and gangrene presence: without obstruction or gangrene Qualified Code(s): K42.9 - Umbilical hernia without obstruction or gangrene Plan: Has appointment already scheduled with surgery (5) Bunion of great toe of left foot: Code(s): M21.612 - Bunion of left foot Category: Medical Plan: podiatry referral already ordered Orders: Orders Basic Metabolic Panel Fasting 08/04/25 E55.9 - Vitamin D deficiency, unspecified, I10 - Essential (primary) hypertension, Z00.01 - Encounter for general adult medical examination with abnormal findings, Z13.1 - Encounter for screening for diabetes mellitus Vitamin D 25-OH Total 08/04/25 E55.9 - Vitamin D deficiency, unspecified, I10 - Essential (primary) hypertension, Z00.01 - Encounter for general adult medical examination with abnormal findings, Z13.1 - Encounter for screening for diabetes mellitus Alanine Aminotransferase 08/04/25 E55.9 - Vitamin D deficiency, unspecified, I10 - Essential (primary) hypertension, Z00.01 - Encounter for general adult medical examination with abnormal findings, Z13.1 - Encounter for screening for diabetes mellitus Aspartate Amino Transferase 08/04/25 E55.9 - Vitamin D deficiency, unspecified, I10 - Essential (primary) hypertension, Z00.01 - Encounter for general adult medical examination with abnormal findings, Z13.1 - Encounter for screening for diabetes mellitus Lipid Panel 08/04/25 E55.9 - Vitamin D deficiency, unspecified, I10 - Essential (primary) hypertension, Z00.01 - Encounter for general adult medical examination with abnormal findings, Z13.1 - Encounter for screening for diabetes mellitus Referrals Cologuard Test Z12.11 - Encounter for screening for malignant neoplasm of colon, Z12.12 - Encounter for screening for malignant neoplasm of rectum
== END 2025-08-04 10:46 | disposition home or self-care (01) ==
LOC: HO.HMCC 09:45
PROVIDERS: PCP Internal Medicine; Visit Provider Internal Medicine
DX: I10 Essential (primary) hypertension (principal); Z00.01 Encounter for general adult medical examination with abnormal findings; F31.30 Bipolar disorder, current episode depressed, mild or moderate severity, unspecified; K42.9 Umbilical hernia without obstruction or gangrene; M21.612 Bunion of left foot

== ENCOUNTER 2025-08-17 10:17 | Outpatient (AMB) | payer OTHER, SELFPAY ==
--- NOTE | 2025-08-17 10:20 | A.OFFVIS_ITS ---
Vital Signs 3 08/17/25 10:21 Height 5 ft Weight 160 lb BMI 31.2 BP 162/82 H Blood Pressure Location Lt brachial Position Sitting Pulse 97 Intake Visit Reasons: Umbilical Hernia Intake Note: Patient is seen in office for evaluation of an umbilical hernia. Pt c/o: Onset 15 years, umbilical hernia, bulge, Hx constipation, straining with bowel movements. Senior Bi Developer Required: No Accompanied by: Self / Same As Patient Allergies acetaminophen (From VICODIN) Allergy (Unknown, Verified 08/17/25 10:28) RASH ibuprofen (From MOTRIN) Allergy (Unknown, Verified 08/17/25 10:28) FACIAL SWELLING oxycodone (Percocet) Allergy (Unknown, Verified 08/17/25 10:28) shortness of breath Medication List - Last Reconciled 08/17/25 by Aamir Saravia MD aripiprazole 10 mg PO DAILY bedside commode (commode) Use As directed NS blood pressure monitor As directed cholecalciferol (vitamin D3) 1,250 mcg PO QWEEK 3 months clonazepam mg PO commode As directed gabapentin 100 - 200 mg PO BEDTIME PRN [Hospital bed with 2 side rails As directed NS] lidocaine 5% 1 patch topical DAILY olmesartan 10 mg (2 x 5 mg) PO DAILY 3 months quetiapine mg PO [Rollator walker with seat As directed NS] [Rollator walker with seat Use As directed NS] rosuvastatin 5 mg PO DAILY Shower Chair As directed NS [Shower chair As directed NS] Shower Chair Use As directed [Suction cup grab bar Use As directed NS] [wheelchair use as directed; ] HPI Comments Details: 50-year-old female patient presenting for evaluation of an umbilical hernia. She reports that the hernia has been present for many years but has now become more symptomatic. She reports pain and constipation due to the hernia. She occasionally needs to push the hernia to reduce it prior to having a bowel movement. She denies any nausea, vomiting, fever or chills. She denies any previous surgery in this location. She is requesting repair of this umbilical hernia. [facility] Medical History Dyslipidemia Vitamin D deficiency Hallux valgus (acquired), left foot Bunion of great toe of left foot Umbilical hernia Mixed stress and urge urinary incontinence Bipolar disorder with current episode depressed Folate deficiency Essential hypertension Annual visit for general adult medical examination with abnormal findings Conversion disorder Weakness of right side of body Surgical History No pertinent past surgical history Family History Father History of diabetes mellitus History of depression History of hypertension History of stroke History of colon cancer Substance use disorder Mother History of diabetes mellitus History of depression History of hypertension History of breast cancer in female Brother History of depression Social History Housing: Apartment Alcohol intake: never Patient Tobacco Use Status: Former Tobacco user Years Smoked: 13yrs e-Cigarette/Vaping Use: Never Used Substance Use Type: Marijuana Current occupational status: disabled Cognitive needs: No Hearing needs: No Vision needs: No Female Reproductive History Menstrual Age of Menarche: 10 Review of Systems Const All systems reviewed & are unremarkable except as noted in HPI and below Physical Exam Vital Signs: Last Vital Signs Pulse 97 08/17/25 10:21 BP 162/82 H 08/17/25 10:21 BMI result Body Mass Index 31.2 Const General: cooperative and no acute distress Nutritional Appearance: well nourished Orientation/consciousness: patient oriented x3 Limitations: no limitations HEENT Head: Yes normocephalic and Yes atraumatic Ears: hearing grossly normal bilaterally Resp Effort & Inspection: normal respiratory effort, no audible wheezes, no cough and no respiratory distress Cardio Jugular venous distension: no JVD GI Other: Soft, nondistended, easily identified umbilical hernia to the right of midline, mildly tender to palpation. Reducible with light pressure. Increases with Valsalva maneuvers. Inspection: Yes normal to inspection Abdomen image: 2 1. 2 cm reducible umbilical hernia, no overlying skin changes. Mildly tender to palpation. Skin Other: Warm, dry, no rash Neuro General: patient oriented x3 Extrem General: Yes no clubbing, cyanosis or edema Assessment & Plan Assessment & Plan (1) Umbilical hernia without obstruction and without gangrene: Code(s): K42.9 - Umbilical hernia without obstruction or gangrene Category: Medical Plan 50-year-old female patient presenting with a palpable umbilical hernia which increases with Valsalva and reduces with light pressure. Patient reports pain and constipation associated with the hernia. I recommended repair of this umbilical hernia with mesh and after discussion of the procedure, risks, and alternatives, she consents to the surgery. She will be scheduled as a short- stay surgery. Orders: Referrals 2 General Surgery Procedure Notification K42.9 - Umbilical hernia without obstruction or gangrene Coding Level of Care Code New Pt Level 4 (26101) Diagnoses Umbilical hernia without obstruction and without gangrene K42.9
[2025-08-17 10:21] VITALS: BP 162/82; PULSE 97; BMI 31.2
== END 2025-08-17 11:01 | disposition home or self-care (01) ==
LOC: HO.HGS 10:18
PROVIDERS: PCP Internal Medicine; Referring Provider Internal Medicine; Visit Provider Surgery
DX: K42.9 Umbilical hernia without obstruction or gangrene (principal)
CPT/HCPCS: 99204

== ENCOUNTER → 2025-08-17 10:17 | Outpatient (BNVA) | payer OTHER, SELFPAY | PROVIDERS: PCP Internal Medicine; Referring Provider Internal Medicine; Visit Provider Surgery | DX: K42.9 Umbilical hernia without obstruction or gangrene (principal); K59.00 Constipation, unspecified | CPT/HCPCS: 99202 ==

== ENCOUNTER 2025-08-19 09:23 | Outpatient (AMB) | payer OTHER, SELFPAY ==
--- NOTE | 2025-08-19 09:30 | A.OFFVIS_ITS ---
Vital Signs 08/19/25 09:32 Height 5 ft Weight 160 lb BMI 31.2 Intake Visit Reasons: f/u xrays; left bunion Intake Note: Shayla is a 50 year old female who presents to the office today for a follow up xrays; left bunion. At last office visit pt was advised to continue using bunion sleeves and was prescribed lidocaine patches. X-rays were ordered and completed. Pt states everything has remained the same and she has not seen any improvement since her last visit Allergies acetaminophen (From VICODIN) Allergy (Unknown, Verified 08/19/25 09:32) RASH ibuprofen (From MOTRIN) Allergy (Unknown, Verified 08/19/25 09:32) FACIAL SWELLING oxycodone (Percocet) Allergy (Unknown, Verified 08/19/25 09:32) shortness of breath HPI Comments Details: The patient is a 50 year old female presenting for evaluation of a painful left bunion. She reports experiencing moderate to severe pain along the first metatarsophalangeal joint (MPJ). The pain is exacerbated by pressure, ambulation, and certain shoes. Previous conservative treatments, including lidocaine patches and changes in shoe gear, have offered only minimal relief. Due to the persistent pain, she is interested in pursuing surgical intervention. She denies any new pedal injuries. She denies any other pedal concerns. [facility] Medical History Dyslipidemia Vitamin D deficiency Hallux valgus (acquired), left foot Bunion of great toe of left foot Umbilical hernia Mixed stress and urge urinary incontinence Bipolar disorder with current episode depressed Folate deficiency Essential hypertension Annual visit for general adult medical examination with abnormal findings Conversion disorder Weakness of right side of body Surgical History No pertinent past surgical history Family History Father History of diabetes mellitus History of depression History of hypertension History of stroke History of colon cancer Substance use disorder Mother History of diabetes mellitus History of depression History of hypertension History of breast cancer in female Brother History of depression Social History Housing: Apartment Alcohol intake: never Patient Tobacco Use Status: Former Tobacco user Years Smoked: 13yrs e-Cigarette/Vaping Use: Never Used Substance Use Type: Marijuana Current occupational status: disabled Cognitive needs: No Hearing needs: No Vision needs: No Female Reproductive History Menstrual Age of Menarche: 10 Review of Systems Const Details: - Musculoskeletal: Reports persistent moderate to severe pain to the left 1st MPJ due to bunion All systems reviewed & are unremarkable except as noted in HPI and below Physical Exam Vital Signs: BMI result Body Mass Index 31.2 Extrem Other: Left lower extremity focused physical exam: Derm: No open lesions abrasions or wounds noted. No clinical signs of infection noted. Skin supple and turgor within normal limits. No ecchymosis or discoloration noted. Toenails x10 within normal limits. No interdigital maceration noted. No hyperkeratotic lesions noted. Vascular: DP/PT pulses palpable. Capillary refill time less than 3 seconds. Temperature gradient warm to warm. Pedal hair absent. No varicosities noted. Mild erythema noted to the medial prominence of the 1st metatarsal head. Neuro: Protective sensation is grossly intact. MSK: Palpable medial bony prominence noted to the 1st MPJ. Pain on palpation to the area of the bunion in the 1st metatarsal. Pain with range of motion of the 1st MPJ. Mild crepitus noted upon range of motion of 1st MPJ. Tracking HAV noted. Small palpable bony prominence noted to the dorsal aspect of the midfoot. Range of motion of the remaining forefoot, hindfoot, and ankle within normal limits. Mildly antalgic gait noted unassisted. Results Reviewed Results Reviewed: Podiatry read of left foot x-ray (07/29/2025): HAV noted with a 1st IM angle of approximately 13.6 degrees. Avulsion fracture noted to the dorsal aspect of the TMTJ. Posterior calcaneal spur noted. Intact Kager's triangle. Mild hammertoe deformities 2 through 5 noted. Left foot x-ray (07/29/2025): FINDINGS: Mild hallux valgus deformity of the first MTP joint. Bone alignment is otherwise normal. No acute fracture or dislocation. Soft tissue well-corticated ossifications projecting over the dorsal foot overlying the MTT joints appreciated on the lateral view only. This may be related to old trauma. Small calcaneal spur at the Achilles tendon insertion. IMPRESSION: Mild hallux valgus deformity at the first MP PIP joint. Question old trauma to the dorsal foot over the MTT joints appreciated on the lateral view. Small calcaneal spur at the Achilles tendon insertion. Ordered left foot weightbearing three-view x-rays to be performed prior to next visit. Her history is also notable for an old foot fracture, which was identified on an x-ray, although she does not recall the injury. She reports slight tenderness in the area of the old fracture. Results - Imaging: - X-ray of the foot revealed an old fracture. Assessment & Plan Assessment & Plan (1) Left foot pain: Code(s): M79.672 - Pain in left foot Category: Medical (2) Hallux valgus (acquired), left foot: Code(s): M20.12 - Hallux valgus (acquired), left foot Category: Medical Plan Patient was informed and verbally consented to the use of an ambient scribe for clinic note documentation during this visit. I discussed with the patient her complaint of moderate to severe pain in her foot due to a bunion. We reviewed that conservative measures such as lidocaine patches and shoe gear changes have provided minimal relief, and she is interested in surgical intervention. I explained the surgical procedure for bunion correction, which involves bone cuts to realign the toe, stabilized with titanium screws and a staple. I detailed the post-operative course, including a non-weight bearing period, followed by gradual weight-bearing, physical therapy, and an estimated total recovery time of two to five months. I advised her that she will need to obtain pre-surgical medical clearance from her primary care physician. We will schedule a pre-operative appointment in September to discuss the surgery again before proceeding. The patient voiced understanding and agreement with the proposed plan. - Plan to schedule surgical correction for the left foot bunion, tentatively in September. - Advised patient to wear supportive shoe gear and wear shoes with a wide toe box. - Advised patient to continue using lidocaine patches. - Advised patient to wear bunion sleeve. - Advised patient to avoid barefoot walking. RTC in 1 month. Coding Level of Care Code Est Pt Level 4 (07395) Diagnoses Left foot pain M79.672 Hallux valgus (acquired), left foot M20.12 Time Spent (min) 32
[2025-08-19 09:32] VITALS: BMI 31.2
== END 2025-08-19 09:45 | disposition home or self-care (01) ==
LOC: HO.HPODS 09:24
PROVIDERS: PCP Internal Medicine; Visit Provider Student in an Organized Health Care Education/Training Program
DX: M79.672 Pain in left foot (principal); M20.12 Hallux valgus (acquired), left foot
CPT/HCPCS: 99214

== ENCOUNTER → 2025-08-19 09:23 | Outpatient (BNVA) | payer OTHER, SELFPAY | PROVIDERS: PCP Internal Medicine; Visit Provider Student in an Organized Health Care Education/Training Program | DX: M20.12 Hallux valgus (acquired), left foot (principal) | CPT/HCPCS: 99212 ==

== ENCOUNTER → 2025-08-24 12:33 | Outpatient (AMB) | payer OTHER, SELFPAY ==
--- NOTE | 2025-08-24 12:33 | A.OFFVIS_ITS ---
Intake Visit Reasons: u/s results Allergies acetaminophen (From VICODIN) Allergy (Unknown, Verified 08/19/25 09:32) RASH ibuprofen (From MOTRIN) Allergy (Unknown, Verified 08/19/25 09:32) FACIAL SWELLING oxycodone (Percocet) Allergy (Unknown, Verified 08/19/25 09:32) shortness of breath Medication List - Last Reconciled 08/24/25 by Nicolasa Logan CNM aripiprazole 10 mg PO DAILY bedside commode (commode) Use As directed NS blood pressure monitor As directed cholecalciferol (vitamin D3) 1,250 mcg PO QWEEK 3 months clonazepam mg PO commode As directed gabapentin 100 - 200 mg PO BEDTIME PRN [Hospital bed with 2 side rails As directed NS] lidocaine 5% 1 patch topical DAILY olmesartan 10 mg (2 x 5 mg) PO DAILY 3 months quetiapine mg PO [Rollator walker with seat As directed NS] [Rollator walker with seat Use As directed NS] rosuvastatin 5 mg PO DAILY Shower Chair As directed NS [Shower chair As directed NS] Shower Chair Use As directed [Suction cup grab bar Use As directed NS] [wheelchair use as directed; ] HPI HPI u/s results: Details: This is a tele visit to review patient's pelvic ultrasound that she had done because I felt her uterus felt slightly enlarged. She was reporting lots of elyssa menopausal symptoms at the previous visit amongst her other issues, On this phone call which was done with [employer]ximity and intended to have video but the video did not work, the patient cited that she has also been bleeding for 14 days but it has not bled that comes out it is bad smelling and brown that she cleans out of her vagina. She has also been dealing with urinary incontinence and fecal incontinence which she has been discussing and getting care for with her primary care provider she has a home commode and other items that help her with her disabilities and she has a FIGHTER PILOT. [facility] Medical History Dyslipidemia Vitamin D deficiency Hallux valgus (acquired), left foot Bunion of great toe of left foot Umbilical hernia Mixed stress and urge urinary incontinence Bipolar disorder with current episode depressed Folate deficiency Essential hypertension Annual visit for general adult medical examination with abnormal findings Conversion disorder Weakness of right side of body Surgical History No pertinent past surgical history Family History Father History of diabetes mellitus History of depression History of hypertension History of stroke History of colon cancer Substance use disorder Mother History of diabetes mellitus History of depression History of hypertension History of breast cancer in female Brother History of depression Social History Housing: Apartment Alcohol intake: never Patient Tobacco Use Status: Former Tobacco user Years Smoked: 13yrs e-Cigarette/Vaping Use: Never Used Substance Use Type: Marijuana Current occupational status: disabled Cognitive needs: No Hearing needs: No Vision needs: No Female Reproductive History Menstrual Age of Menarche: 10 Telehealth Telehealth Telehealth Platform: [employer] Location of provider rendering services: practice address Location of patient: address on file Patient Identification confirmed using: Name, : Yes Telehealth method: video (Attempted video but it did not function.....) Patient verbally consented to treatment: Yes Patient verbally consented to billing insurance company: Yes Patient informed of any privacy concerns related to visit: Yes Minutes spent on Phone/Video with Pt.: 19 Results Reviewed Results Reviewed: Patient: Shayla Garcia MR#: [id number] : 1975 Acct:[id number] Age/Sex: 50 / F ADM Date: 08/03/25 Loc: HO.US Attending Dr: Nicolasa Logan CNM Ordering Physician: Nicolasa Logan CNM Date of Service: 08/03/25 Procedure(s): US pelvic and transvaginal Accession Number(s): [id number] cc: Christine Anderson MD; Nicolasa Logan CNM~ Reason for Exam: N85.2 - Hypertrophy of uterus EXAMINATION: US PELVIS, COMPLETE CLINICAL INFORMATION: N85.2 - Hypertrophy of uterus COMPARISON: Ultrasound 03/28/2019 TECHNIQUE: Transabdominal and transvaginal imaging was performed. FINDINGS: LMP: 07/13/2025 Uterus is anteverted and anteflexed , measuring 9.8 x 5.3 x 6.9 cm. Heterogeneous foci in the uterus likely fibroids. This includes a subserosal fibroid in the posterior body measuring 2.4 x 2.1 x 2.1 cm; anterior body intramural fibroid measuring 2.1 x 1.9 x 1.6 cm; anterior body subserosal fibroid measuring 2.2 x 1.9 x 2 cm. Endometrial thickness 0.6 cm. Right ovary measures 4 x 1.9 x 2.3 cm. Volume 9.2 mL. Right ovarian dominant follicle measuring 2.3 cm. Vascular flow is demonstrated. Left ovary measures 2.5 x 1.5 x 1.7 cm. Volume 3.3 mL. Vascular flow is seen. No free fluid in the cul-de-sac. US/US pelvic and transvaginal IMPRESSION: Multiple heterogeneous uterine lesions, likely fibroids. Electronically signed by: Abhi Mora MD 08/04/2025 10:18 AM EST Dictated By: Abhi Mora MD Signed By: <Electronically signed by Abhi Mora MD in OV> 08/04/25 1018 DD/ 1412 TD/TT: 08/03/25 1428 Vice President Risk Management: KARUNA Recent positive BV end of June and beginning of July patient was treated. Assessment & Plan Assessment & Plan (1) Mixed stress and urge urinary incontinence: Code(s): N39.46 - Mixed incontinence Category: Medical (2) Bulky or enlarged uterus: Comment: Maybe within normal limits will get ultrasound to verify if there were any fibroids; ultrasound shows 3 fibroids all in the 2 +cm range, review at follow- up visit... Code(s): N85.2 - Hypertrophy of uterus Category: Medical (3) Cervical cancer screening: Comment: 07/09/2025 Pap is ASCUS but the HPV is negative. [facility]P recommends 3 year follow-up. Code(s): Z12.4 - Encounter for screening for malignant neoplasm of cervix Category: Medical (4) Perimenopause: Code(s): N95.1 - Menopausal and female climacteric states Category: Medical (5) Weakness of right side of body: Code(s): R53.1 - Weakness Category: Medical (6) Abnormal perimenopausal bleeding: Code(s): N92.4 - Excessive bleeding in the premenopausal period Category: Medical (7) Fibroids: Code(s): D21.9 - Benign neoplasm of connective and other soft tissue, unspecified Category: Medical Plan I reviewed the ultrasound with her and also what she has been experiencing. She has spoken with her primary care provider about the incontinence and she says her primary care provider's set it probably had to do with her being nervous. Nevertheless she also had a Cologuard test and just sent that off for reading. I reviewed the ultrasound with her and explained about fibroids. I reviewed what she had shared about the bleeding and recommend that we do a endometrial biopsy to make sure that there is no worrisome finding inside her uterus that could include something cancerous patient is concerned and anxious appropriately. I did discuss with her that it is an uncomfortable procedure. She said she would be more comfortable bringing her FIGHTER PILOT in the room with her and I told her that would be fine. Request is going to be made for her she will be scheduled for an endometrial biopsy in the coming future. Thereafter that we can have a visit by tele visit to review the results as it is generally difficult for her to get to appointments because of her disabilities. Patient said she did not have any other questions. In addition she did treat the bacterial vaginosis but still reports a malodor, so we will do retesting for infection before the EMB. Coding Level of Care Code Tele Est Pt Level 3 (03049) Diagnoses Mixed stress and urge urinary incontinence N39.46 Bulky or enlarged uterus N85.2 Cervical cancer screening Z12.4 Perimenopause N95.1 Weakness of right side of body R53.1 Abnormal perimenopausal bleeding N92.4 Fibroids D21.9 Time Spent (min) 39 Comment 10 cr/19 speaking w pt/10 charting=39
== END ==
LOC: HO.HWS 12:33
PROVIDERS: PCP Internal Medicine; Visit Provider Advanced Practice Midwife
DX: N39.46 Mixed incontinence (principal); N85.2 Hypertrophy of uterus; Z12.4 Encounter for screening for malignant neoplasm of cervix; N95.1 Menopausal and female climacteric states; R53.1 Weakness; N92.4 Excessive bleeding in the premenopausal period; D21.9 Benign neoplasm of connective and other soft tissue, unspecified
CPT/HCPCS: 99213

== ENCOUNTER 2025-09-02 08:01 | Day surgery (SDC) | payer OTHER, SELFPAY ==
--- NOTE | 2025-08-28 14:06 | HO.ANESPROP2 ---
Documented by User: Carmen Jonas NP 09/01/25 08:32 HPI - Anesthesia Eval Consult details Narrative: 50yo F for Repair Hernia Umbilical Reducible with mesh PMFSH Active Problems Active Problems: All Active Problems Fibroids (Acute) Abnormal perimenopausal bleeding (Acute) Umbilical hernia without obstruction and without gangrene (Acute) Dyslipidemia (Acute) Vitamin D deficiency (Acute) Hallux valgus (acquired), left foot (Acute) Perimenopause (Acute) Decreased libido (Acute) Cervical cancer screening (Acute) Bulky or enlarged uterus (Acute) Bunion of great toe of left foot (Acute) Umbilical hernia (Acute) Mixed stress and urge urinary incontinence (Acute) Bipolar disorder with current episode depressed (Acute) Essential hypertension (Acute) Conversion disorder (Acute) Weakness of right side of body (Acute) Past Medical History Medical History Dyslipidemia Vitamin D deficiency Hallux valgus (acquired), left foot Bunion of great toe of left foot Umbilical hernia Mixed stress and urge urinary incontinence Bipolar disorder with current episode depressed Folate deficiency Essential hypertension Annual visit for general adult medical examination with abnormal findings Conversion disorder Weakness of right side of body Family History Family History Father History of diabetes mellitus History of depression History of hypertension History of stroke History of colon cancer Substance use disorder Mother History of diabetes mellitus History of depression History of hypertension History of breast cancer in female Brother History of depression Surgical History Surgical History No pertinent past surgical history Social History Social History Housing: Apartment Alcohol intake: never Patient Tobacco Use Status: Former Tobacco user Years Smoked: 13yrs e-Cigarette/Vaping Use: Never Used Substance Use Type: Marijuana Current occupational status: disabled Cognitive needs: No Hearing needs: No Vision needs: No Meds Allergies Allergy/AdvReac Type Severity Reaction Status Date / Time hydrocodone Allergy Intermediate Rash Verified 08/31/25 09:07 ibuprofen (From MOTRIN) Allergy Intermediate FACIAL Verified 08/31/25 09:07 SWELLING oxycodone (Percocet) Allergy Intermediate shortness Verified 08/31/25 09:07 of breath Home Medications ?Medication ?Instructions ?Recorded ?Confirmed ?Last Taken ?Type quetiapine 50 mg tablet 50 - 100 mg PO BEDTIME 12/16/24 08/31/25 Unknown History aripiprazole 10 mg tablet 10 mg PO DAILY 04/16/25 08/31/25 Unknown History gabapentin 100 mg capsule 100 - 200 mg PO BEDTIME PRN 04/16/25 08/31/25 Unknown History insomnia clonazepam 0.5 mg tablet 0.5 mg PO TID PRN Anxiety 08/04/25 08/31/25 Unknown History Exam Pertinent Lab Results Pertinent Lab Results: Laboratory Tests 12/25/24 08/04/25 10:32 10:33 WBC 9.8 Hgb 12.5 Hct 37.2 Plt Count 287 Sodium 143 Potassium 3.9 Chloride 108 Carbon Dioxide 26 BUN 11 Creatinine 0.71 Assessment and Plan Assessment Anesthesia Assessment: Chart Reviewed Documented by User: Irlanda Oneil MD 09/02/25 07:30 PMFSH Past Medical History Medical History Dyslipidemia Vitamin D deficiency Hallux valgus (acquired), left foot Bunion of great toe of left foot Umbilical hernia Mixed stress and urge urinary incontinence Bipolar disorder with current episode depressed Folate deficiency Essential hypertension Annual visit for general adult medical examination with abnormal findings Conversion disorder Weakness of right side of body Family History Family History Father History of diabetes mellitus History of depression History of hypertension History of stroke History of colon cancer Substance use disorder Mother History of diabetes mellitus History of depression History of hypertension History of breast cancer in female Brother History of depression Family history of problems with anesthesia: No Surgical History Surgical History No pertinent past surgical history History of Problems with Anesthesia: No Social History Social History Housing: Apartment Alcohol intake: never Patient Tobacco Use Status: Former Tobacco user Years Smoked: 13yrs e-Cigarette/Vaping Use: Never Used Substance Use Type: Marijuana Current occupational status: disabled Cognitive needs: No Hearing needs: No Vision needs: No Meds Allergies Allergy/AdvReac Type Severity Reaction Status Date / Time hydrocodone Allergy Intermediate Rash Verified 08/31/25 09:07 ibuprofen (From MOTRIN) Allergy Intermediate FACIAL Verified 08/31/25 09:07 SWELLING oxycodone (Percocet) Allergy Intermediate shortness Verified 08/31/25 09:07 of breath Home Medications ?Medication ?Instructions ?Recorded ?Confirmed ?Last Taken ?Type quetiapine 50 mg tablet 50 - 100 mg PO BEDTIME 12/16/24 08/31/25 Unknown History aripiprazole 10 mg tablet 10 mg PO DAILY 04/16/25 08/31/25 Unknown History gabapentin 100 mg capsule 100 - 200 mg PO BEDTIME PRN 04/16/25 08/31/25 Unknown History insomnia clonazepam 0.5 mg tablet 0.5 mg PO TID PRN Anxiety 08/04/25 08/31/25 Unknown History Exam Airway TM Dist: >3cm Neck ROM: Full Heart: rrr Assessment and Plan Assessment Anesthesia Assessment: Anesthesia Plan Discussed Final Anesthetic Review Family History of Problems with Anesthesia: No History of Problems with Anesthesia: No NPO: Yes ASA Class: II Final Preanesthetic Review: No Changes in Pt Med Stat, Meds/Allgs Chart Reviewed, Consent Obtained/Reviewed and Anes Risks/Benef Reviewed Patient Risk: Low Procedure Risk: Intermediate Anesthetic Plan Anesthetic Plan: Agree w/ Assess. and Plan Disposition: Standard PACU
[2025-08-31 09:09] VITALS: BMI 31.2
[2025-09-02 08:25] LABS: UPreg QC Valid YES
[2025-09-02 08:28] VITALS: BP 146/80; PULSE 90; RESP 16; TEMP 36.9; O2SAT 96
[2025-09-02] MEDS: Lactated Ringers 1,000 ML 100 ML IVCONT (08:28)
--- NOTE | 2025-09-02 08:40 | MHC.SHP ---
Pre-Procedural Eval Section A - 24 Hr Update-Section A only Date of Service: 09/02/25 The patient is an INPATIENT: No Changes since office visit: Yes Patient answered all questions; No Cold of Flu in the past 2 weeks, No New Medical Problems and No Changes in Medication The patient has been examined within 24 hours of the surgical procedure. The History & Physical has been completed within 30 days and I have reviewed it.: Yes Section B - Complete if H&P > 30 days Chief Complaint: Umbilical hernia without obstruction or gangrene Allergies: Allergies Allergy/AdvReac Type Severity Reaction Status Date / Time hydrocodone Allergy Intermediate Rash Verified 08/31/25 09:07 ibuprofen (From MOTRIN) Allergy Intermediate FACIAL Verified 08/31/25 09:07 SWELLING oxycodone (Percocet) Allergy Intermediate shortness Verified 08/31/25 09:07 of breath Plan Diagnosis/Plan: Unchanged I have reviewed the history and physical and performed a pertinent physical examination on my patient. No changes have occurred unless specified. Time Spent With Patient Time: Total time managing care of this patient today ____ minutes.
--- NOTE | 2025-09-02 09:33 | P.OP_ITS ---
Operative Note Operative Note Date of Service: 09/02/25 Narrative: Preoperative diagnosis: Reducible umbilical hernia, 2 cm Postoperative diagnosis: Same Procedure: Repair of umbilical hernia with mesh Surgeon: Aamir Saravia MD Tool Lathe Operator: Niru Rubi PA-C Anesthesia: General LMA Indications for procedure: 50-year-old female patient presenting with a painful lump in her umbilicus to the right of midline which increases in size with lifting and straining. On examination she has a partially reducible umbilical hernia which increases with Valsalva maneuvers. Operative findings: Umbilical hernia containing incarcerated preperitoneal fat Specimen: Hernia sac Estimated blood loss: Less than 2 mL Complications: None Procedure details: Patient was brought to the OR and placed in a supine position. After administering general anesthesia the patient's abdomen was prepped with ChloraPrep and draped in a sterile fashion. A surgical time-out was called the consent confirmed. Patient received preoperative antibiotics and Venodyne boots were in place. Local anesthesia consisting of 0.5% Sensorcaine was infiltrated in the midline adjacent to the umbilical hernia on the right side. This was carried down through subcutaneous tissue up to the hernia sac. Hernia sac was then dissected down to the fascial defect. The defect was open slightly to allow reduction of the preperitoneal fat. The hernia sac was excised and sent to pathology for further examination. Umbilical skin was lifted off the fascia using electrocautery. The preperitoneal space was then opened further using blunt dissection and electrocautery. Hemostasis was assured at all times using electrocautery. A 4.3 cm round Ventralex mesh was then obtained. This was deployed within the preperitoneal space and secured in 4 quadrants using the 1 Tycron suture. Fascia was then closed over the mesh using [id number] 1 Tycron sutures. Prior to complete closure of the fascia approximately 6 mL of Zenrelef was instilled below the fascia and the fascia closed. Wounds were then irrigated with saline solution and suctioned dry. Umbilical skin was reattached to the fascia using a 3-0 Polysorb suture. Dermis was reapproximated using interrupted 3-0 Polysorb sutures. Skin was then closed using a running subcuticular 4-0 Polysorb suture. Steri-Strips, 4 x 4 gauze and Tegaderm were then applied. The patient tolerated the procedure well. Sponge, instrument, and needle counts reported as correct. The patient was transferred to PACU in stable condition.
[2025-09-02 09:46] VITALS: BP 140/91; PULSE 97; RESP 20; TEMP 36.1; O2SAT 97
[2025-09-02 09:50] VITALS: BP 126/40; PULSE 91; RESP 18; O2SAT 98
[2025-09-02 09:55] VITALS: BP 116/72; PULSE 88; RESP 16; O2SAT 98
[2025-09-02 10:00] VITALS: BP 131/77; PULSE 86; RESP 13; TEMP 36.3; O2SAT 99
== END 2025-09-02 10:19 | disposition home or self-care (01) ==
PROVIDERS: Nurse Practitioner; PCP Internal Medicine; Visit Provider Surgery
PROC: (CPT 49592; principal; 2025-09-02 09:00)
DX: K42.9 Umbilical hernia without obstruction or gangrene (principal); K59.00 Constipation, unspecified; N39.46 Mixed incontinence; I10 Essential (primary) hypertension; E78.5 Hyperlipidemia, unspecified; D52.9 Folate deficiency anemia, unspecified; E55.9 Vitamin D deficiency, unspecified; F31.9 Bipolar disorder, unspecified; F44.9 Dissociative and conversion disorder, unspecified; R53.1 Weakness; Z79.899 Other long term (current) drug therapy; Z99.3 Dependence on wheelchair; Z88.5 Allergy status to narcotic agent; Z88.6 Allergy status to analgesic agent; Z87.891 Personal history of nicotine dependence
CPT/HCPCS: 49592; 81025; 88302; C1781; J0668; J0690; J1100; J2003; J2250; J2405; J2704; J3010

== ENCOUNTER → 2025-09-02 08:01 | Outpatient (BNV) | payer OTHER, SELFPAY | PROVIDERS: PCP Internal Medicine; Visit Provider Surgery | DX: K42.9 Umbilical hernia without obstruction or gangrene (principal) | CPT/HCPCS: 49591 ==

== ENCOUNTER → 2025-09-07 08:04 | Outpatient (REF) | payer OTHER, SELFPAY ==
--- NOTE | ~2025-09-07 | XR_ITS ---
EXAMINATION: XR CHEST 2 VIEWS HISTORY: Z01.818 - Encounter for other preprocedural examination COMPARISON: There are no prior studies available for comparison. FINDINGS: PA and lateral views of the chest are submitted. There are mild increased markings at the right lung base which may represent atelectasis or possibly early pneumonia. The left lung is clear. There is no pleural effusion, pneumothorax, or pulmonary vascular congestion. The heart is normal in size. The bones are intact. XR/XR chest 2V IMPRESSION: Mild increased markings at the right lung base could represent atelectasis or early pneumonia in the appropriate clinical setting. Electronically signed by: Angelito Dill MD 09/07/2025 08:51 AM EST
--- NOTE | 2025-09-07 08:09 | ECG_ITS ---
Test Reason : preop Blood Pressure : */* mmHG Vent. Rate : 101 BPM Atrial Rate : 101 BPM P-R Int : 142 ms QRS Dur : 74 ms QT Int : 352 ms P-R-T Axes : 58 32 20 degrees QTcB Int : 456 ms Sinus tachycardia Otherwise normal ECG No previous ECGs available Referred By: Christine Anderson Electronically Signed By: NGOZI NIEVES
[2025-09-07 08:24] LABS: MANUAL DIFF FLAG NO
[2025-09-07 08:47] LABS: Hematocrit 36.7 % (37.0-47.0); Hemoglobin 12.1 g/dl (12.0-16.0); Imm Gran Abs Auto 0.06 X10*3/uL (0.00-0.03); Imm Gran Pct Auto 0.7 % (0.0-0.4); Lymphocytes Absolute Auto 1.6 X10*3/uL (1.2-4.9); Mean Corpuscular HGB Conc 33.0 g/dl (31.0-35.0); Mean Corpuscular Hemoglobin 29.6 pg (27.0-33.0); Mean Corpuscular Volume 89.7 fL (80.0-98.0); NRBC Abs Auto 0.000 X10*3/uL (0.0-0.012); NRBC Pct Auto 0.0 /100WBC (0.0-0.2); Platelet Count 332 X10*3/uL (160-400); Red Blood Count 4.09 X10*6/uL (4.20-5.50); White Blood Count 8.7 X10*3/uL (4.8-10.8)
[2025-09-07 08:52] LABS: INTERNATIONAL NORM RATIO 1.0 (0.9-1.1); Prothrombin Time 12.0 SEC (11.2-13.5)
[2025-09-07 08:55] LABS: Partial Thromboplastin Time 26.3 SEC (26.7-34.1)
[2025-09-07 09:18] LABS: Alanine Aminotransferase 14 U/L (0-31); Albumin Level 3.9 g/dL (3.5-5.0); Alkaline Phosphatase 91 U/L (39-117); Anion Gap 12 (12-20); Aspartate Amino Transferase 37 U/L (5-31); Blood Urea Nitrogen 15 mg/dL (9-16); Calcium 8.9 mg/dL (8.4-10.2); Carbon Dioxide 22 mmol/L (22-29); Chloride 110 mmol/L (96-108); Estimated Glomerular Filt Rate > 60; Potassium 3.1 mmol/L (3.3-5.1); Sodium 141 mmol/L (135-145); Total Protein 7.0 g/dL (6.5-8.0)
== END ==
LOC: HO.CARD 08:04
PROVIDERS: PCP Internal Medicine; Visit Provider Internal Medicine
DX: Z01.810 Encounter for preprocedural cardiovascular examination (principal); Z01.818 Encounter for other preprocedural examination; I10 Essential (primary) hypertension; Z79.01 Long term (current) use of anticoagulants
CPT/HCPCS: 36415; 71046; 80053; 84702; 85025; 85610; 85730; 93005

== ENCOUNTER → 2025-09-07 08:09 | Outpatient (BNV) | payer OTHER, SELFPAY | PROVIDERS: PCP Internal Medicine; Visit Provider Internal Medicine | DX: Z01.818 Encounter for other preprocedural examination (principal); R00.0 Tachycardia, unspecified | CPT/HCPCS: 93010 ==

== ENCOUNTER → 2025-09-07 08:24 | Outpatient (BNV) | payer OTHER, SELFPAY | PROVIDERS: PCP Internal Medicine; Visit Provider Radiology Diagnostic Radiology | DX: Z01.818 Encounter for other preprocedural examination (principal) | CPT/HCPCS: 71046 ==